=== PATIENT | male | born 1965 | race Two or more races ===

== ENCOUNTER 2023-09-18 22:32 | Inpatient (IN) | payer MEDICAID, OTHER ==
[~2023-09-18] VITALS: Ht 177.8 cm; Wt 114.0 kg
[2023-09-18 23:02] VITALS: PULSE 90; RESP 18; O2SAT 95
[2023-09-18] MEDS: VANCOMYCIN 1GM/200ML 200 ML IV ONE (23:21)
[2023-09-18] MEDS: ONDANSETRON HCL 4 MG/2 ML VIAL IV ONE (23:22)
[2023-09-18 23:35] LABS: Basophils # (auto) 0.1 10 ^3/uL (0-0.2); Basophils % (auto) 0.7 % (0.0-2.0); Eosinophils # (auto) 0.2 10 ^3/uL (0-0.8); Hematocrit 31.7 % (41.0-53.0); Hemoglobin 10.4 g/dL (13.5-17.5); Lymphocytes # (auto) 1.9 10 ^3/uL (0.4-5.4); Mean Corpuscular Hemoglobin 29.9 pg (28.0-32.0); Mean Corpuscular Hgb Conc. 32.9 g/dL (32.0-36.0); Mean Corpuscular Volume 91.1 fL (80.0-100.0); Monocytes % (auto) 5.9 % (0.0-12.0); Neutrophils # (auto) 14.1 10 ^3/uL (1.6-8.6); Neutrophils % (auto) 81.4 % (37.0-80.0); Red Blood Cells 3.48 10^6/uL (4.5-5.90); Red Cell Distribution Width 14.3 % (11.8-14.3); White Blood Cell 17.3 10^3/uL (4.4-10.8)
[2023-09-18 23:48] LABS: INR 0.97 (0.9-1.15); Partial Thromboplastin Time 27.6 SEC (24.5-34.5); Prothrombin Time 10.3 sec (9.3-11.8)
[2023-09-19 00:35] LABS: Alanine Aminotransferase 12 U/L (7-40); Albumin 3.7 g/dL (3.2-4.8); Alkaline Phosphatase 76 U/L (46-116); Anion Gap 9 (5-15); Aspartate Aminotransferase < 8 U/L (13-40); BUN/Creatinine Ratio 10.3 (10.0-20.0); Blood Urea Nitrogen 38 mg/dL (9-23); Calcium 8.9 mg/dL (8.7-10.4); Carbon Dioxide 22 mmol/L (20-30); Chloride 102 mmol/L (98-107); Glucose 265 mg/dL (74-106); Magnesium 1.9 mg/dL (1.6-2.6); Potassium 4.7 mmol/L (3.5-5.1); Sodium 133 mmol/L (136-145)
[2023-09-19 00:36] LABS: Bilirubin, Total 0.2 mg/dL (0.2-1.0); Total Protein 6.7 g/dL (5.7-8.2)
[2023-09-19] MEDS ORDERED: MORPHINE SULFATE 4 MG/ML SYR/VIAL IV ONE (01:15)
[2023-09-19] MEDS: MORPHINE SULFATE 4 MG/ML SYR/VIAL IV ONE (01:30)
[2023-09-19] MEDS: SODIUM CHLORIDE 0.9% 1,000 ML IV ONE (01:31)
[2023-09-19] MEDS: levoFLOXacin 500MG 100 ML IV ONE (01:32)
[2023-09-19] MEDS: metroNIDAZOLE 500MG/100ML 100 ML IV ONE (01:32)
[2023-09-19] MEDS ORDERED: NITROGLYCERIN 0.4 MG SL TAB SL PRN (03:00)
[2023-09-19] MEDS ORDERED: DEXTROSE (50%) 50ML SYRG IV PRN (03:00)
[2023-09-19] MEDS ORDERED: MORPHINE SULFATE INJ 2 MG/ml SYRG IV PRN ×3 (03:00→13:00)
[2023-09-19] MEDS ORDERED: ONDANSETRON HCL 4 MG/2 ML VIAL IV PRN (03:00)
[2023-09-19] MEDS ORDERED: VANCOMYCIN PER PHARMACY 0 MG IV SCH (03:00)
[2023-09-19] MEDS: SODIUM CHLORIDE 0.9% 1,000 ML IV SCH (03:21)
[2023-09-19 03:54] LABS: Urine Bacteria None Seen /hpf (None Seen)
[2023-09-19 04:38] LABS: Urine Blood Negative /uL (Negative); Urine Clarity Clear (Clear); Urine Color Light-Yellow (Yellow); Urine Protein, UAD 2+ (Negative); Urine Specific Gravity 1.011 (1.001-1.035); Urine Urobilinogen Normal (Negative); Urine WBC 5 /hpf (0 - 3)
[2023-09-19] MEDS: CLINDAMYCIN 600MG IV 50 ML IV SCH (05:40)
[2023-09-19] MEDS: InsuLIN REG 1unit/0.01ml Soln (100units/ml) SC SCH (06:00)
[2023-09-19] MEDS: ACCU-CHEK COMFORT CURVE STRIP VI SCH (06:10)
[2023-09-19 07:31] LABS: Amphetamine Screen, Urine Neg (NEGATIVE)
[2023-09-19 07:33] LABS: Barbiturate Scree,Urine Neg (NEGATIVE)
[2023-09-19 07:34] LABS: Benzodiazephine Screen, Urine Neg (NEGATIVE); Cannabinoid Screen, Urine Neg (NEGATIVE); Cocaine Screen, Urine Neg (NEGATIVE); Opiate Scree,Urine Neg (NEGATIVE); Phencyclidine Screen, Urine Neg (NEGATIVE)
[2023-09-19 07:40] VITALS: PULSE 79; RESP 18; O2SAT 95
[2023-09-19] MEDS: MORPHINE SULFATE INJ 2 MG/ml SYRG IV PRN (09:19)
[2023-09-19 09:34] LABS: Creatinine, Urine 52.03 mg/dL (30.0-125.0)
[2023-09-19] MEDS: PIPERACILLIN-TAZOB 3.375GM 100 ML IV SCH (10:00)
[2023-09-19 10:38] LABS: Chloride 107 mmol/L (98-107); Potassium 4.3 mmol/L (3.5-5.1); Sodium 138 mmol/L (136-145)
[2023-09-19 10:39] LABS: Anion Gap 8 (5-15); Calcium 8.7 mg/dL (8.7-10.4); Carbon Dioxide 23 mmol/L (20-30)
[2023-09-19 10:44] LABS: BUN/Creatinine Ratio 12.3 (10.0-20.0); Blood Urea Nitrogen 41 mg/dL (9-23); Glucose 105 mg/dL (74-106)
[2023-09-19] MEDS: VANCOMYCIN 1GM/200ML 200 ML IV ONE (10:54)
[2023-09-19] MEDS: METOCLOPRAMIDE HCL 5MG/ml INJ 2ml VIAL IV ONE (13:00)
[2023-09-19] MEDS ORDERED: fentaNYL CITRATE 100 MCG/2 ML VL IV PRN (13:00)
[2023-09-19] MEDS ORDERED: HYDROmorphone HCL 2 MG/ML VL/or syr IV PRN ×2 (13:00)
[2023-09-19] MEDS ORDERED: MIDAZOLAM HCL 2MG/2ML 2ml VIAL (1mg/ml) ONE (13:05)
[2023-09-19] MEDS ORDERED: ONDANSETRON HCL 4 MG/2 ML VIAL ONE (13:05)
[2023-09-19] MEDS ORDERED: MEPERIDINE HCL (25 MG/ML) 1ML VIAL ONE (13:05)
[2023-09-19] MEDS ORDERED: LIDOCAINE 1% INJ PF 5ML AMP ONE (13:05)
[2023-09-19] MEDS ORDERED: KETAMINE 50mg/ML 10ml Vial 10 ML ONE (13:05)
[2023-09-19] MEDS ORDERED: fentaNYL CITRATE 100 MCG/2 ML VL ONE (13:05)
[2023-09-19] MEDS ORDERED: PROPOFOL 10 MG/ML 20 ML IV ONE (13:05)
[2023-09-19] MEDS: ACCU-CHEK COMFORT CURVE STRIP VI ONE (13:09)
[2023-09-19] MEDS: BUPIVACAINE HCL 0.25% P/F 10 ML VIAL ONE (13:11)
[2023-09-19] MEDS: BUPIVACAINE 0.5% P/F INJ 10 ML VIAL ONE (13:31)
[2023-09-19] MEDS: BUPIVACAINE W/ EPINEPH 0.5% INJ 50ML MDV IJ ONE (14:02)
[2023-09-19 14:16] VITALS: PULSE 69; RESP 14; O2SAT 97
[2023-09-19] MEDS: HYDROmorphone HCL 2 MG/ML VL/or syr IV ONE ×2 (15:20→16:00)
[2023-09-19 16:36] VITALS: BP 143/84; PULSE 79; RESP 18; TEMP 97.5; O2SAT 95
[2023-09-19 16:47] VITALS: BP 143/84; PULSE 79; RESP 18; TEMP 97.5; O2SAT 95
[2023-09-19 16:51] LABS: Chloride 110 mmol/L (98-107); Potassium 4.8 mmol/L (3.5-5.1); Sodium 140 mmol/L (136-145)
[2023-09-19 16:52] LABS: Anion Gap 12 (5-15); Calcium 9.1 mg/dL (8.7-10.4); Carbon Dioxide 18 mmol/L (20-30)
[2023-09-19 16:54] LABS: Basophils # (auto) 0.1 10 ^3/uL (0-0.2); Basophils % (auto) 0.5 % (0.0-2.0); Eosinophils # (auto) 0.3 10 ^3/uL (0-0.8); Eosinophils % (auto) 2.4 % (0.0-7.0); Hematocrit 32.8 % (41.0-53.0); Hemoglobin 10.6 g/dL (13.5-17.5); Lymphocytes # (auto) 1.8 10 ^3/uL (0.4-5.4); Lymphocytes % (auto) 12.7 % (10.0-50.0); Mean Corpuscular Hemoglobin 30.1 pg (28.0-32.0); Mean Corpuscular Hgb Conc. 32.2 g/dL (32.0-36.0); Mean Corpuscular Volume 93.4 fL (80.0-100.0); Monocytes % (auto) 6.9 % (0.0-12.0); Neutrophils # (auto) 11.1 10 ^3/uL (1.6-8.6); Neutrophils % (auto) 77.5 % (37.0-80.0); Nucleated Red Blood Cells % 0.1 %; Red Blood Cells 3.51 10^6/uL (4.5-5.90); Red Cell Distribution Width 14.6 % (11.8-14.3); White Blood Cell 14.3 10^3/uL (4.4-10.8)
[2023-09-19 16:57] LABS: Blood Urea Nitrogen 38 mg/dL (9-23); Glucose 77 mg/dL (74-106)
[2023-09-19] MEDS ORDERED: GABA-1250 PO (18:00)
[2023-09-19] MEDS ORDERED: NIFE1TAB31 PO (18:00)
[2023-09-19] MEDS ORDERED: MELO15TA29 PO (18:00)
[2023-09-19] MEDS ORDERED: LORA10TA6 PO (18:00)
[2023-09-19] MEDS ORDERED: CYCL-838 PO (18:07)
[2023-09-19] MEDS ORDERED: CHOL20TA PO (18:07)
[2023-09-19] MEDS ORDERED: METH100035 PO (18:07)
[2023-09-19] MEDS ORDERED: INSU100I26 SC (18:07)
[2023-09-19] MEDS ORDERED: LISI40TA16 PO (18:07)
[2023-09-19] MEDS ORDERED: INSLANTI SC (18:07)
[2023-09-19 20:00] VITALS: PULSE 71; PULSE 83; RESP 15; O2SAT 97
[2023-09-19 21:00] VITALS: BP 112/44; PULSE 77; RESP 18; TEMP 98; O2SAT 93
[2023-09-19] MEDS: MEROPENEM 500MG IVPB 50 ML IV SCH (21:10)
[2023-09-20] VITALS (8 sets, daily range): BP systolic 121–154; BP diastolic 51–85; PULSE 70–106; RESP 18–20; TEMP 97.7–98.8; O2SAT 92–99
[2023-09-20 06:20] LABS: Alanine Aminotransferase 11 U/L (7-40); Alkaline Phosphatase 68 U/L (46-116); Anion Gap 10 (5-15); BUN/Creatinine Ratio 11.3 (10.0-20.0); Basophils # (auto) 0.1 10 ^3/uL (0-0.2); Basophils % (auto) 0.6 % (0.0-2.0); Blood Urea Nitrogen 36 mg/dL (9-23); Calcium 8.6 mg/dL (8.7-10.4); Carbon Dioxide 21 mmol/L (20-30); Chloride 108 mmol/L (98-107); Eosinophils # (auto) 0.4 10 ^3/uL (0-0.8); Eosinophils % (auto) 3.2 % (0.0-7.0); Glucose 145 mg/dL (74-106); Hemoglobin 10.1 g/dL (13.5-17.5); Lymphocytes # (auto) 1.4 10 ^3/uL (0.4-5.4); Lymphocytes % (auto) 13.1 % (10.0-50.0); Mean Corpuscular Hemoglobin 30.8 pg (28.0-32.0); Mean Corpuscular Hgb Conc. 33.6 g/dL (32.0-36.0); Mean Corpuscular Volume 91.7 fL (80.0-100.0); Monocytes # (auto) 0.8 10 ^3/uL (0-1.3); Monocytes % (auto) 7.3 % (0.0-12.0); Neutrophils # (auto) 8.2 10 ^3/uL (1.6-8.6); Neutrophils % (auto) 75.8 % (37.0-80.0); Potassium 4.8 mmol/L (3.5-5.1); Red Blood Cells 3.27 10^6/uL (4.5-5.90); Red Cell Distribution Width 13.9 % (11.8-14.3); Sodium 139 mmol/L (136-145); White Blood Cell 10.8 10^3/uL (4.4-10.8)
[2023-09-20 06:21] LABS: Albumin 3.3 g/dL (3.2-4.8); Aspartate Aminotransferase < 8 U/L (13-40)
[2023-09-20 06:22] LABS: Bilirubin, Total 0.2 mg/dL (0.2-1.0); Total Protein 6.2 g/dL (5.7-8.2)
[2023-09-20] MEDS: MEROPENEM 1GM IVPB 50 ML IV SCH (09:46)
[2023-09-20] MEDS: VANCOMYCIN 1GM/200ML 200 ML IV ONE (12:45)
[2023-09-20] MEDS: GABAPENTIN 300 MG CAP PO SCH (13:16)
[2023-09-21] VITALS (8 sets, daily range): BP systolic 128–147; BP diastolic 58–79; PULSE 59–76; RESP 17–20; TEMP 97.6–98.6; O2SAT 95–97
[2023-09-21] MEDS: HYDROcodone-ACET 5/325MG TAB PO PRN (08:07)
[2023-09-21 08:33] LABS: Basophils # (auto) 0.1 10 ^3/uL (0-0.2); Basophils % (auto) 0.6 % (0.0-2.0); Eosinophils # (auto) 0.3 10 ^3/uL (0-0.8); Eosinophils % (auto) 3.1 % (0.0-7.0); Hematocrit 30.8 % (41.0-53.0); Hemoglobin 10.3 g/dL (13.5-17.5); Lymphocytes # (auto) 1.4 10 ^3/uL (0.4-5.4); Lymphocytes % (auto) 13.5 % (10.0-50.0); Mean Corpuscular Hemoglobin 30.3 pg (28.0-32.0); Mean Corpuscular Hgb Conc. 33.3 g/dL (32.0-36.0); Mean Corpuscular Volume 90.7 fL (80.0-100.0); Monocytes # (auto) 0.7 10 ^3/uL (0-1.3); Monocytes % (auto) 6.6 % (0.0-12.0); Neutrophils % (auto) 76.2 % (37.0-80.0); Nucleated Red Blood Cells % 0.1 %; Red Blood Cells 3.39 10^6/uL (4.5-5.90); Red Cell Distribution Width 13.8 % (11.8-14.3); White Blood Cell 10.5 10^3/uL (4.4-10.8)
[2023-09-21 08:43] LABS: Chloride 107 mmol/L (98-107); Potassium 5.1 mmol/L (3.5-5.1); Sodium 139 mmol/L (136-145)
[2023-09-21 08:44] LABS: Anion Gap 8 (5-15); Calcium 9.4 mg/dL (8.7-10.4); Carbon Dioxide 24 mmol/L (20-30)
[2023-09-21 08:49] LABS: BUN/Creatinine Ratio 12.7 (10.0-20.0); Blood Urea Nitrogen 39 mg/dL (9-23); Glucose 235 mg/dL (74-106)
[2023-09-21] MEDS: NIFEdipine ER 30 MG TAB PO SCH ×2 (10:00→21:06)
[2023-09-21] MEDS: LOSARTAN POTASSIUM 50 MG TAB PO SCH (10:00)
[2023-09-21] MEDS: VANCOMYCIN 750mg/150ml 150 ML IV ONE (14:05)
[2023-09-21] MEDS: ERGOCALCIFEROL 50,000 UNIT(1.25MG) CAP PO SCH (17:35)
[2023-09-21] MEDS: levoFLOXacin 250 MG TAB PO SCH (21:10)
[2023-09-21] MEDS ORDERED: AMOXICILLIN/CLAVUL 875 MG TAB PO SCH (22:00)
[2023-09-22] VITALS (7 sets, daily range): BP systolic 109–136; BP diastolic 57–74; PULSE 63–81; RESP 17–20; TEMP 97.5–98.8; O2SAT 92–98
[2023-09-22 06:06] LABS: Basophils # (auto) 0.1 10 ^3/uL (0-0.2); Basophils % (auto) 0.8 % (0.0-2.0); Eosinophils # (auto) 0.4 10 ^3/uL (0-0.8); Hematocrit 31.4 % (41.0-53.0); Hemoglobin 10.4 g/dL (13.5-17.5); Lymphocytes % (auto) 20.7 % (10.0-50.0); Mean Corpuscular Hemoglobin 30.3 pg (28.0-32.0); Mean Corpuscular Hgb Conc. 33.3 g/dL (32.0-36.0); Monocytes # (auto) 0.7 10 ^3/uL (0-1.3); Monocytes % (auto) 7.2 % (0.0-12.0); Neutrophils # (auto) 6.7 10 ^3/uL (1.6-8.6); Neutrophils % (auto) 67.3 % (37.0-80.0); Red Blood Cells 3.45 10^6/uL (4.5-5.90); Red Cell Distribution Width 13.7 % (11.8-14.3); White Blood Cell 9.9 10^3/uL (4.4-10.8)
[2023-09-22 06:10] LABS: Anion Gap 9 (5-15); Carbon Dioxide 23 mmol/L (20-30); Chloride 106 mmol/L (98-107); Potassium 4.7 mmol/L (3.5-5.1); Sodium 138 mmol/L (136-145)
[2023-09-22 06:11] LABS: Calcium 9.4 mg/dL (8.7-10.4)
[2023-09-22 06:15] LABS: Glucose 235 mg/dL (74-106)
[2023-09-22 06:16] LABS: BUN/Creatinine Ratio 12.4 (10.0-20.0); Blood Urea Nitrogen 37 mg/dL (9-23)
[2023-09-22] MEDS: INSULIN LANTUS (GLARGINE) 1 /0.01ml (100units/ml) SC SCH (11:23)
[2023-09-22] MEDS: AMOXICILLIN/CLAVUL 875 MG TAB PO SCH (21:40)
[2023-09-23] VITALS (7 sets, daily range): BP systolic 106–139; BP diastolic 52–69; PULSE 69–80; RESP 16–20; TEMP 36.5; O2SAT 92–96
[2023-09-23 05:43] LABS: Anion Gap 8 (5-15); Carbon Dioxide 24 mmol/L (20-30); Chloride 107 mmol/L (98-107); Potassium 4.9 mmol/L (3.5-5.1); Sodium 139 mmol/L (136-145)
[2023-09-23 05:44] LABS: Calcium 9.1 mg/dL (8.7-10.4)
[2023-09-23 05:47] LABS: Basophils # (auto) 0.1 10 ^3/uL (0-0.2); Basophils % (auto) 0.8 % (0.0-2.0); Eosinophils # (auto) 0.4 10 ^3/uL (0-0.8); Eosinophils % (auto) 4.6 % (0.0-7.0); Hematocrit 30.2 % (41.0-53.0); Hemoglobin 10.2 g/dL (13.5-17.5); Lymphocytes # (auto) 2.5 10 ^3/uL (0.4-5.4); Lymphocytes % (auto) 25.4 % (10.0-50.0); Mean Corpuscular Hemoglobin 30.4 pg (28.0-32.0); Mean Corpuscular Hgb Conc. 33.8 g/dL (32.0-36.0); Monocytes # (auto) 0.6 10 ^3/uL (0-1.3); Monocytes % (auto) 6.2 % (0.0-12.0); Neutrophils # (auto) 6.1 10 ^3/uL (1.6-8.6); Red Blood Cells 3.35 10^6/uL (4.5-5.90); Red Cell Distribution Width 13.7 % (11.8-14.3); White Blood Cell 9.7 10^3/uL (4.4-10.8)
[2023-09-23 05:49] LABS: BUN/Creatinine Ratio 14.2 (10.0-20.0); Glucose 182 mg/dL (74-106)
[2023-09-23 05:53] LABS: Blood Urea Nitrogen 47 mg/dL (9-23)
[2023-09-23] MEDS ORDERED: HYDR-4902 PO (11:03)
[2023-09-23] MEDS ORDERED: AUG875T PO (14:04)
== END 2023-09-23 18:25 | disposition home health service (06) | DRG 349 ==
LOC: ER 22:32 → EDBD 22:32 → TELE 09-19 03:02 → TELE-WESTW 09-19 16:41 → WEST WING 09-21 20:57
PROVIDERS: ADMIT Internal Medicine; ATTEND Internal Medicine
PROC: 0Y9G0ZZ Drainage of Left Knee Region, Open Approach (ICD-10-PCS; principal; 2023-09-19 13:40)
DX: T87.44 Infection of amputation stump, left lower extremity (principal); N17.0 Acute kidney failure with tubular necrosis; L02.416 Cutaneous abscess of left lower limb; E87.1 Hypo-osmolality and hyponatremia; L03.116 Cellulitis of left lower limb; E11.22 Type 2 diabetes mellitus with diabetic chronic kidney disease; N18.4 Chronic kidney disease, stage 4 (severe); F17.200 Nicotine dependence, unspecified, uncomplicated; I12.9 Hypertensive chronic kidney disease with stage 1 through stage 4 chronic kidney disease, or unspecified chronic kidney disease; Y83.8 Other surgical procedures as the cause of abnormal reaction of the patient, or of later complication, without mention of misadventure at the time of the procedure; E66.01 Morbid (severe) obesity due to excess calories; E55.9 Vitamin D deficiency, unspecified; E87.5 Hyperkalemia; Z89.512 Acquired absence of left leg below knee; Z79.4 Long term (current) use of insulin; Z88.0 Allergy status to penicillin; Z68.36 Body mass index [BMI] 36.0-36.9, adult
CPT/HCPCS: 36415; 71045; 73590; 80048; 80053; 80202; 80307; 81001; 82306; 82570; 82962; 83036; 83605; 83735; 83880; 84300; 84484; 85025; 85610; 85730; 86850; 86900; 86901; 87040; 87070; 87075; 87077; 87081; 87186; 87205; G0378; J1815; J1956; J2185; J2250; J2405; J2704; J3490

== ENCOUNTER 2023-10-25 05:53 | Inpatient (IN) | payer MEDICAID ==
[~2023-10-25] VITALS: Ht 193 cm; Wt 136.4 kg
[~2023-10-25 05:53] MED LIST: AUG875T PO; CHOL20TA PO; CYCL-838 PO; GABA-1250 PO; HYDR-4902 PO; INSLANTI SC; INSU100I26 SC; LISI40TA16 PO; LORA10TA6 PO; MELO15TA29 PO; METH100035 PO; NIFE1TAB31 PO
[2023-10-25] MEDS: VANCOMYCIN 1GM/200ML 200 ML IV ONE (08:29)
[2023-10-25] MEDS: HYDROcodone-ACET 10/325MG TAB PO ONE ×2 (08:40→11:49)
[2023-10-25 08:50] LABS: Basophils # (auto) 0.1 10 ^3/uL (0-0.2); Basophils % (auto) 0.9 % (0.0-2.0); Eosinophils # (auto) 0.6 10 ^3/uL (0-0.8); Eosinophils % (auto) 5.9 % (0.0-7.0); Hematocrit 34.6 % (41.0-53.0); Hemoglobin 11.6 g/dL (13.5-17.5); Lymphocytes # (auto) 2.1 10 ^3/uL (0.4-5.4); Lymphocytes % (auto) 19.6 % (10.0-50.0); Mean Corpuscular Hemoglobin 30.8 pg (28.0-32.0); Mean Corpuscular Hgb Conc. 33.5 g/dL (32.0-36.0); Mean Corpuscular Volume 91.9 fL (80.0-100.0); Monocytes # (auto) 0.6 10 ^3/uL (0-1.3); Monocytes % (auto) 5.2 % (0.0-12.0); Neutrophils # (auto) 7.5 10 ^3/uL (1.6-8.6); Neutrophils % (auto) 68.4 % (37.0-80.0); Nucleated Red Blood Cells % 0.1 %; Platelet Count (auto) 284 10^3/uL (140-450); Red Blood Cells 3.77 10^6/uL (4.5-5.90); Red Cell Distribution Width 15.6 % (11.8-14.3); White Blood Cell 10.9 10^3/uL (4.4-10.8)
[2023-10-25 09:13] LABS: Alanine Aminotransferase 16 U/L (7-40); Albumin 4.2 g/dL (3.2-4.8); Alkaline Phosphatase 88 U/L (46-116); Anion Gap 7 (5-15); Aspartate Aminotransferase 12 U/L (13-40); BUN/Creatinine Ratio 10.1 (10.0-20.0); Blood Urea Nitrogen 39 mg/dL (9-23); Calcium 9.8 mg/dL (8.7-10.4); Carbon Dioxide 21 mmol/L (20-30); Chloride 109 mmol/L (98-107); Glucose 149 mg/dL (74-106); Potassium 4.9 mmol/L (3.5-5.1); Sodium 137 mmol/L (136-145)
[2023-10-25 09:14] LABS: Bilirubin, Total 0.2 mg/dL (0.2-1.0)
[2023-10-25] MEDS: PIPERACILLIN-TAZOB 3.375GM 100 ML IV ONE (09:39)
[2023-10-25 11:38] VITALS: PULSE 80; RESP 16; O2SAT 98
[2023-10-25] MEDS ORDERED: DOCUSATE SOD 100 MG CAP PO PRN (12:45)
[2023-10-25] MEDS ORDERED: ONDANSETRON HCL 4 MG/2 ML VIAL IV PRN (12:45)
[2023-10-25] MEDS ORDERED: NITROGLYCERIN 0.4 MG SL TAB SL PRN (12:45)
[2023-10-25] MEDS ORDERED: VANCOMYCIN PER PHARMACY 0 MG IV SCH (12:45)
[2023-10-25] MEDS: SODIUM CHLORIDE 0.9% 1,000 ML IV SCH (13:10)
[2023-10-25] MEDS: CEFEPIME 2GM/50ML NS 50 ML IV SCH (14:38)
[2023-10-25] MEDS: MORPHINE SULFATE INJ 2 MG/ml SYRG IV PRN (14:45)
[2023-10-26] MEDS ORDERED: ENOXAPARIN SOD 40 MG/0.4 ML SYRINGE SC SCH (10:00)
== END 2023-10-25 18:13 | disposition left against medical advice (07) | DRG 349 ==
LOC: ER 05:53 → OVERFLOW 12:46 → UNDOADMIN 12:46 → UNDODISIN 18:13
PROVIDERS: ADMIT Nurse Practitioner Family; ATTEND Nurse Practitioner Family
DX: T87.44 Infection of amputation stump, left lower extremity (principal); N17.9 Acute kidney failure, unspecified; L03.116 Cellulitis of left lower limb; E11.22 Type 2 diabetes mellitus with diabetic chronic kidney disease; Z53.29 Procedure and treatment not carried out because of patient's decision for other reasons; E66.9 Obesity, unspecified; I12.9 Hypertensive chronic kidney disease with stage 1 through stage 4 chronic kidney disease, or unspecified chronic kidney disease; N18.9 Chronic kidney disease, unspecified; Z68.36 Body mass index [BMI] 36.0-36.9, adult; Z79.4 Long term (current) use of insulin; Z79.899 Other long term (current) drug therapy; Y84.8 Other medical procedures as the cause of abnormal reaction of the patient, or of later complication, without mention of misadventure at the time of the procedure; Y92.89 Other specified places as the place of occurrence of the external cause
CPT/HCPCS: 36415; 73590; 80053; 85025; 93971; 96361; 96365; 96366; 96367; 96375; G0378; J0692; J2543

== ENCOUNTER 2024-01-04 16:17 | Inpatient (IN) | payer MEDICAID ==
[~2024-01-04] VITALS: Ht 190.5 cm; Wt 136.9 kg
[2024-01-04] MEDS: HYDROMORPHONE HCL 1 MG/ML INJ IV ONE (19:45)
--- NOTE | 2024-01-04 19:52 | ED.PDOC ---
History of Present Illness HPI Comments A 58 year old male presents to the ED with a chief complaint of wound check onset today. Patient states he gets wound care by home care nurse but has not been seen for the past 2 weeks. Patient believes he has an infection for the past 2 days, with drainage and surrounding area is red and tender to touch. Pr imary care is Dr. Pratt but has not seen him recently. Patient has a past medical history of DM, HTN,CKF. No other symptoms or modifying factors present at this time. Chief Complaint: Wound Check Time Seen by MD: 19:40 Reviewed Notes: Medications, Allergies Allergies: Coded Allergies: Penicillins (Verified Allergy, Unknown, 09/19/23) Home Meds Active Scripts Amoxicillin & Pot Clavulanate (AUGMENTIN TABLET) 875 Mg Tb, 875 MG PO BID for 14 Days, #28 TAB Prov:JOSÉ MIGUEL SMITH RESIDENT 09/23/23 Hydrocodone-Acetaminophen (Hydrocodone Bitartrate/AC 5-325 mg) 1 Tab Tab, 1 TAB PO Q6HPRN PRN, #30 TAB Prov:MONSE OCHOA MD 09/23/23 Reported Medications Insulin Lispro (Admelog) 100 Unit/Ml Inj, 100 UNIT SC, INJ 09/19/23 Insulin Glargine (Lantus) 100 Unit/Ml Inj, 100 UNIT SC, INJ 09/19/23 Lisinopril (Lisinopril) 40 Mg Tab, 40 MG PO DAILY for 30 Days, MG 09/19/23 Methocarbamol (Robaxin) 1,000 Mg/10 Ml Inj, 750 MG PO BIDP, INJ 09/19/23 Cholecalciferol (Vitamin D3) 20 Mcg Tab, 125 MCG PO DAILY, TAB 09/19/23 Cyclobenzaprine Hcl (CYCLOBENZAPRINE HCL) 7.5 Mg Tab, 5 MG PO TIDPRN, TAB 09/19/23 Loratadine (Loratadine) 10 Mg Tab, 10 MG PO DAILY, TAB 09/19/23 Meloxicam (Meloxicam) 15 Mg Tab, 15 MG PO DAILY, TAB 09/19/23 Nifedipine (Nifedipine Er) 30 Mg Tab, 30 MG PO DAILY, TAB 09/19/23 Gabapentin (Gabapentin) 300 Mg Cap, 300 MG PO TIDP for 30 Days, MG 09/19/23 Information Source: Patient Mode of Arrival: Ambulatory Severity: Moderate Timing: Days Duration: Since onset Prehospital treatment: None Past Medical History PAST MEDICAL HISTORY: CKF, DM, HTN Surgical History: BKA Surgical History (Other): RT femur surgery RT toe amputation Family History Family History: Unknown Social History Smoker: Non-Smoker Alcohol: Occasionally Drugs: Denies Drug Use Lives In: Home Constitutional: denies: chills, diaphoresis, fatigue, fever, malaise, sweats, weakness, others EENTM: denies: blurred vision, double vision, ear bleeding, ear discharge, ear drainage, ear pain, ear ringing, eye pain, eye redness, hearing loss, mouth pain, mouth swelling, nasal discharge, nose bleeding, nose congestion, nose pain, photophobia, tearing, throat pain, throat swelling, voice changes, others Respiratory: denies: cough, hemoptysis, orthopnea, SOB at rest, shortness of breath, SOB with excertion, stridor, wheezing, others Cardiovascular: denies: chest pain, dizzy spells, diaphoresis, Dyspnea on exertion, edema, irregular heart beat, left arm pain, lightheadedness, palpitations, PND, syncope, others Gastrointestinal: denies: abdomen distended, abdominal pain, blood streaked bowels, constipated, diarrhea, dysphagia, difficulty swallowing, hematemesis, melena, nausea, poor appetite, poor fluid intake, rectal bleeding, rectal pain, vomiting, others Genitourinary: denies: burning, dysuria, flank pain, frequency, hematuria, incontinence, penile discharge, penile sore, pain, testicle pain, testicle swelling, urgency, others Neurological: denies: dizziness, fainting, headache, left sided numbness, left sided weakness, numbness, paresthesia, pre-existing deficit, right sided numbness, right sided weakness, seizure, speech problems, tingling, tremors, weakness, others Musculoskeletal: reports: others (LT stump with open wound); denies: back pain, gout, joint pain, joint swelling, muscle pain, muscle stiffness, neck pain Integumetry: denies: bruises, change in color, change in hair/nails, dryness, laceration, lesions, lumps, rash, wounds, others Allergic/Immunocompromised: denies: Difficulty Healing, Frequent Infections, Hives, Itching, others Hematologic/Lymphatic: denies: anemia, blood clots, easy bleeding, easy bruising, swollen glands, others Endocrine: denies: excessive hunger, excessive sweating, excessive thirst, excessive urination, flushing, intolerance to cold, intolerance to heat, unexplained weight gain, unexplained weight loss, others Psychiatric: denies: anxiety, bipolar disorder, depression, hopeless, panic disorder, schizophrenia, sleepless, suicidal, others All Other Systems: Reviewed and Negative Physical Exam General Appearance: Mild Distress, Normal HEENT: Normal ENT Inspection, Pharynx Normal, TMs Normal Neck: Full Range of Motion, Non-Tender, Normal, Normal Inspection Respiratory: Chest Non-Tender, Lungs Clear, No Accessory Muscle Use, No Respiratory Distress, Normal Breath Sounds Cardiovascular: No Edema, No JVD, No Murmur, No Gallop, Normal Peripheral Pulses, Regular Rate/Rhythm Breast Exam: Deferred Gastrointestinal: No Organomegaly, Non Tender, No Pulsatile Mass, Normal Bowel Sounds, Soft Genitalia: Deferred Pelvic: Deferred Rectal: Deferred Extremities: No calf tenderness, Normal capillary refill, Normal inspection, Normal range of motion, Non-tender, No pedal edema, Other (Left [id number] amputation stump with the open wound and purulent discharge about a half-dollar size) Musculoskeletal : Apperance: Normal Neurologic: Alert, security guard supervisor II-XII nml as Tested, No Motor Deficits, Normal Affect, Normal Mood, No Sensory Deficits Cerebellar Function: Normal Reflexes: Normal Skin: Dry, Normal Color, Warm Lymphatic: No Adenopathy Was a procedure done? Was a procedure done?: No Differential Dx Considerations may include: Sepsis cellulitis abscess formation wound infection X-Ray, Labs, Meds, VS Vital Signs Date Time Temp Pulse Resp B/P (MAP) Pulse Ox O2 Delivery O2 Flow Rate FiO2 01/04/24 17:43 97.8 77 16 138/73 (94) 97 Lab Test 01/04/24 20:57 01/04/24 20:00 Range/Units Troponin I High Sensitivity 5 5 </=54 ng/L White Blood Count 12.6 H 4.4-10.8 10^3/uL Red Blood Count 4.31 L 4.5-5.90 10^6/uL Hemoglobin 13.2 L 13.5-17.5 g/dL Hematocrit 40.1 L 41.0-53.0 % Mean Corpuscular Volume 93.0 80.0-100.0 fL Mean Corpuscular Hemoglobin 30.5 28.0-32.0 pg Mean Corpuscular Hemoglobin Concent 32.9 32.0-36.0 g/dL Red Cell Distribution Width 15.3 H 11.8-14.3 % Platelet Count 281 140-450 10^3/uL Mean Platelet Volume 9.1 6.9-10.8 fL Neutrophils (%) (Auto) 69.5 37.0-80.0 % Lymphocytes (%) (Auto) 22.1 10.0-50.0 % Monocytes (%) (Auto) 4.8 0.0-12.0 % Eosinophils (%) (Auto) 2.7 0.0-7.0 % Basophils (%) (Auto) 0.9 0.0-2.0 % Neutrophils # (Auto) 8.8 H 1.6-8.6 10 ^3/uL Lymphocytes # (Auto) 2.8 0.4-5.4 10 ^3/uL Monocytes # (Auto) 0.6 0-1.3 10 ^3/uL Eosinophils # (Auto) 0.3 0-0.8 10 ^3/uL Basophils # (Auto) 0.1 0-0.2 10 ^3/uL Nucleated Red Blood Cells 0.0 % Prothrombin Time 10.5 9.3-11.8 sec Prothrombin Time INR 0.99 0.9-1.15 Activated Partial Thromboplast Time 27.1 24.5-34.5 SEC Sodium Level 139 136-145 mmol/L Potassium Level 5.8 *H 3.5-5.1 mmol/L Chloride Level 109 H 98-107 mmol/L Carbon Dioxide Level 22 20-31 mmol/L Anion Gap 8 5-15 Blood Urea Nitrogen 54 H 9-23 mg/dL Creatinine 3.11 H 0.700-1.30 mg/dL Glomerular Filtration Rate Calc 23 >90 mL/min BUN/Creatinine Ratio 17.4 10.0-20.0 Serum Glucose 182 H 74-106 mg/dL Calcium Level 10.4 8.7-10.4 mg/dL Total Bilirubin 0.2 0.2-1.0 mg/dL Aspartate Amino Transferase (AST) 9 L 13-40 U/L Alanine Aminotransferase (ALT) 16 7-40 U/L Alkaline Phosphatase 101 46-116 U/L B-Type Natriuretic Peptide 35.18 0-100 pg/mL Total Protein 8.5 H 5.7-8.2 g/dL Albumin 4.7 3.2-4.8 g/dL [facility] [address] [facility] [id number] Ph: [phone] DIAGNOSTIC IMAGING Diagnostic Imaging Report : [id number] Signed PATIENT: HEATHER WOLF WACCT: [id number] UNIT: [id number] : 1965 LOC: ER ROOM / BED: / AGE / SEX: 58 / M ADM STATUS: REG ER SERVICE 44 ORDERING PHYSICIAN: HARDEEP PEÑALOZA MD PROCEDURE(s): CXRP - CHEST PORTABLE REASON: wound ORDER NUMBER(s): [id number], ACCESSION NUMBER(s): [id number] EXAM: XY CHEST PORTABLE CLINICAL HISTORY: wound TECHNIQUE: Single AP view of the chest WID: COMPARISON: XY CHEST PORTABLE on DOS: 09/18/23 FINDINGS: Lines and tubes: None Chest: The heart size and pulmonary vasculature is within normal limits. No pleural effusion, pneumothorax, or consolidation. The osseous structures are grossly intact. IMPRESSION: No acute cardiopulmonary abnormality. ATED BY: VICTORIA MEDINA MD DICTATED DATE/TIME: 01/04/242113 SIGNED BY: VICTORIA MEDINA MD SIGNED DATE/TIME: 01/04/242113 CC: First troponin is five. Second troponin is five. EKG is pending White blood cell count is 12.6. BNP is 35. BUN is 54 and creatinine 3.1. Potassium is 5.8 glucose is 186. Lactic acid is pending. The patient was placed on Zosyn and vancomycin for. Montilla infection. He will be admitted to the hospitalist for further evaluation and care. Time of 1ST Reevaluation: 20:10 Reevaluation 1ST: Unchanged Patient Education/Counseling: Diagnosis, Treatment, Prognosis Family Education/Counseling: No Family Present Departure 1 Departure Time of Disposition: 21:58 Impression: Primary Impression: Wound infection Additional Impressions: Chronic renal failure Qualified Codes: N18.9 - Chronic kidney disease, unspecified Hyperkalemia Disposition: ADMITTED INPATIENT Admit to: Med Surg Condition: Guarded Critical Care Note Critical Care Time?: No Stability Stability form required: No I personally scribed for HARDEEP PEÑALOZA MD ([email or web address]) on 01/04/24 at 19:52. Electronically submitted by Alee Zhu ([email or web address]). I personally scribed for HARDEEP PEÑALOZA MD ([email or web address]) on 01/04/24 at 21:42. Electronically submitted by Alee Zhu ([email or web address]). HARDEEP PEÑALOZA MD Jan 04, 2024 19:52
[2024-01-04 20:24] LABS: Basophils # (auto) 0.1 10 ^3/uL (0-0.2); Basophils % (auto) 0.9 % (0.0-2.0); Eosinophils # (auto) 0.3 10 ^3/uL (0-0.8); Eosinophils % (auto) 2.7 % (0.0-7.0); Hematocrit 40.1 % (41.0-53.0); Hemoglobin 13.2 g/dL (13.5-17.5); Lymphocytes # (auto) 2.8 10 ^3/uL (0.4-5.4); Lymphocytes % (auto) 22.1 % (10.0-50.0); Mean Corpuscular Hemoglobin 30.5 pg (28.0-32.0); Mean Corpuscular Hgb Conc. 32.9 g/dL (32.0-36.0); Monocytes # (auto) 0.6 10 ^3/uL (0-1.3); Monocytes % (auto) 4.8 % (0.0-12.0); Neutrophils # (auto) 8.8 10 ^3/uL (1.6-8.6); Neutrophils % (auto) 69.5 % (37.0-80.0); Platelet Count (auto) 281 10^3/uL (140-450); Red Blood Cells 4.31 10^6/uL (4.5-5.90); Red Cell Distribution Width 15.3 % (11.8-14.3); White Blood Cell 12.6 10^3/uL (4.4-10.8)
[2024-01-04 20:35] LABS: Alanine Aminotransferase 16 U/L (7-40); Albumin 4.7 g/dL (3.2-4.8); Alkaline Phosphatase 101 U/L (46-116); Anion Gap 8 (5-15); Aspartate Aminotransferase 9 U/L (13-40); BUN/Creatinine Ratio 17.4 (10.0-20.0); Blood Urea Nitrogen 54 mg/dL (9-23); Calcium 10.4 mg/dL (8.7-10.4); Carbon Dioxide 22 mmol/L (20-31); Chloride 109 mmol/L (98-107); Glucose 182 mg/dL (74-106); Sodium 139 mmol/L (136-145)
[2024-01-04 20:36] LABS: Bilirubin, Total 0.2 mg/dL (0.2-1.0); Total Protein 8.5 g/dL (5.7-8.2)
[2024-01-04 20:45] LABS: INR 0.99 (0.9-1.15); Partial Thromboplastin Time 27.1 SEC (24.5-34.5); Prothrombin Time 10.5 sec (9.3-11.8)
--- NOTE | 2024-01-04 21:17 | DVH ---
EXAM: XY CHEST PORTABLE CLINICAL HISTORY: wound TECHNIQUE: Single AP view of the chest WID: COMPARISON: XY CHEST PORTABLE on DOS: 09/18/23 FINDINGS: Lines and tubes: None Chest: The heart size and pulmonary vasculature is within normal limits. No pleural effusion, pneumothorax, or consolidation. The osseous structures are grossly intact. IMPRESSION: No acute cardiopulmonary abnormality.
[2024-01-04 21:47] LABS: Potassium 5.8 mmol/L (3.5-5.1)
[2024-01-04] MEDS: HYDROcodone-ACET 10/325MG TAB PO ONE (23:52)
[2024-01-05] MEDS: PIPERACILLIN-TAZOB 3.375GM 100 ML IV ONE (00:14)
[2024-01-05] MEDS: SODIUM CHLORIDE 0.9% 1,000 ML IV ONE (00:14)
[2024-01-05] MEDS: ONDANSETRON HCL 4 MG/2 ML VIAL IV ONE (00:15)
[2024-01-05 00:27] VITALS: PULSE 77; RESP 16; O2SAT 98
[2024-01-05] MEDS ORDERED: ACETAMINOPHEN 325 MG TAB PO PRN (01:15)
[2024-01-05] MEDS ORDERED: DEXTROSE (50%) 50ML SYRG IV PRN (01:15)
[2024-01-05] MEDS ORDERED: TEMAZEPAM 15 MG CAP PO PRN (01:15)
[2024-01-05] MEDS ORDERED: hydrALAZINE HCL 20 MG/ML VL IV PRN (01:15)
[2024-01-05] MEDS: SODIUM ZIRCONIUM CYCL 10 GM PAK PO ONE (01:32)
[2024-01-05 01:43] LABS: Urine Bacteria None Seen /hpf (None Seen)
[2024-01-05] MEDS: SODIUM BICARB 8.4% 50Meq/50ml SYR Vial IV ONE (01:45)
[2024-01-05] MEDS: CALCIUM GLUC 1,000mg/50ml-NS 50 ML IV ONE (01:56)
--- NOTE | 2024-01-05 02:01 | DVH ---
INDICATION: Rule out osteomyellitus COMPARISON: None TECHNIQUE: CT of the left femur was performed without contrast. Volume transverse images were obtaine d and reconstructed in multiple planes using bone and soft tissue algorithms. All CT scans at this medical facility are performed using dose modulation techniques as appropriate t o a performed exam including the following: Automated exposure control was utilized; adjustment of th e MA and/or KV according to patient size; and use of iterative reconstruction technique. FINDINGS: Normal mineralization and alignment. Joint spaces are preserved. There is no acute fracture. No focal osteopenia or cortical destruction to suggest osteomyelitis. There is mild osteoarthritis of the lef t hip with mild joint space narrowing. There is tricompartment osteoarthritis of the left knee with m ild medial compartment joint space narrowing and tricompartment osteophyte formation. Prostate calcifications are seen. Urinary bladder is partially imaged and moderately distended. No ac roseanna abnormality in the visualized pelvis. The muscle bundles about the left femur are intact. Note is made of subcutaneous varicose veins. There is a trace left knee joint effusion. There is calcified a therosclerosis IMPRESSION: 1. No acute osseous abnormality. 2. Mild osteoarthritis of the left hip. 3. Mild tricompartment osteoarthritis of the left knee with mild medial compartment joint space jobyo .
[2024-01-05 02:13] LABS: Urine Amorphous Crystal FEW /hpf (None Seen); Urine Blood Negative /uL (Negative); Urine Clarity Clear (Clear); Urine Color Light-Yellow (Yellow); Urine Protein, UAD 2+ (Negative); Urine Specific Gravity 1.014 (1.001-1.035); Urine Urobilinogen Normal (Negative); Urine WBC 1 /hpf (0 - 3); Urine pH 5.5 (5.0-9.0)
[2024-01-05] MEDS: DEXTROSE (50%) 50ML SYRG IV ONE ×2 (02:28→08:15)
[2024-01-05] MEDS: InsuLIN REG 1unit/0.01ml Soln (100units/ml) IV ONE ×3 (02:28→16:51)
[2024-01-05] MEDS: VANCOMYCIN 1GM/200ML PREMIX 200 ML IV ONE (02:42)
[2024-01-05] MEDS: HYDROcodone-ACET 5/325MG TAB PO PRN (04:23)
--- NOTE | 2024-01-05 05:46 | DVHHP2 ---
History of Present Illness Reason for Visit: Open wound History of Present Illness 68-year-old male presents for evaluation an open wound. Patient reports having home health seen in open wound day he has on his left BKA stump. He states not seeing a wound nurse for the past two weeks. He has noticed open wound with foul-smelling drainage. Denies fever or chills. Denies any other acute complaints at the moment. Past Medical History Diabetes mellitus, chronic kidney disease, hypertension Past Surgical History Left BKA Family History Noncontributory Smoke: No ALCOHOL: occassional Drugs: None Lives: with Family Review of Systems Review of Systems Review of systems are currently negative otherwise addressed in HPI. Allergies: Coded Allergies: Penicillins (Verified Allergy, Unknown, 09/19/23) Hydromorphone (Verified Adverse Reaction, Unknown, vomiting, 01/05/24) Sodium Zirconium Cyclosilicate (Verified Adverse Reaction, Unknown, vomiting, 01/05/24) Medications Current Medications Medications Dose Ordered Sig/Shana Route Start Time Stop Time Status Last Admin Dose Admin Levofloxacin 50 ml @ 50 mls/hr DAILY IV 01/05/24 10:00 Clindamycin Phosphate 50 ml @ 50 mls/hr Q8HR IV 01/05/24 06:00 Nifedipine 30 mg DAILY PO 01/05/24 10:00 Hydralazine HCl 10 mg Q6HP PRN IV 01/05/24 01:15 Diagnostic Test (Pha) 1 strip ACHS 01/05/24 07:00 Insulin Human Regular ACHS SC 01/05/24 07:00 Dextrose 50 ml UD PRN IV 01/05/24 01:15 Acetaminophen/ Hydrocodone Bitart 1 tab Q4HP PRN PO 01/05/24 01:15 01/05/24 04:23 1 TAB Temazepam 15 mg QHSP PRN PO 01/05/24 01:15 Ondansetron HCl 4 mg Q4HP PRN IV 01/05/24 01:15 Acetaminophen 650 mg Q6HP PRN PO 01/05/24 01:15 Exam Vital Signs Vital Signs Date Time Temp Pulse Resp B/P (MAP) Pulse Ox O2 Delivery O2 Flow Rate FiO2 01/05/24 04:19 72 15 106/70 (82) 97 01/05/24 00:27 Room Air* 0 21 01/04/24 23:20 98.1 98.1 Exam Gen: 58-year-old male in mild distress. Skin: Warm, dry, normal color and texture, no rash. HEENT: Normocephalic atraumatic, mucous membranes moist and pink. Neck: Cervical and supraclavicular nodes normal without enlargement, trachea is midline, thyroid gland is normal without masses. Pulmonary: Clear to auscultation and percussion bilaterally. Cardiac: Regular rate and rhythm. No murmur Abdomen: Soft, nontender, nondistended, bowel sounds present all 4 quadrants, no guarding, no rigidity, no organomegaly. Extremities: No cyanosis, clubbing, open wound at left BKA stump Neuro: Cranial nerves II through XII grossly intact, normal affect and speech, no focal motor deficits. Labs/Xrays ORDERING PHYSICIAN: HARDEEP PEÑALOZA MD PROCEDURE(s): [facility] [place] - CT L FEMUR WO CONTRAST REASON: Rule out osteomyellitus ORDER NUMBER(s): [id number], ACCESSION NUMBER(s): [id number] INDICATION: Rule out osteomyellitus COMPARISON: None TECHNIQUE: CT of the left femur was performed without contrast. Volume transverse images were obtained and reconstructed in multiple planes using bone and soft tissue algorithms. All CT scans at this medical facility are performed using dose modulation techniques as appropriate to a performed exam including the following: Automated exposure control was utilized; adjustment of the MA and/or KV according to patient size; and use of iterative reconstruction technique. FINDINGS: Normal mineralization and alignment. Joint spaces are preserved. There is no acute fracture. No focal osteopenia or cortical destruction to suggest osteomyelitis. There is mild osteoarthritis of the left hip with mild joint space narrowing. There is tricompartment osteoarthritis of the left knee with mild medial compartment joint space narrowing and tricompartment osteophyte formation. Prostate calcifications are seen. Urinary bladder is partially imaged and moderately distended. No acute abnormality in the visualized pelvis. The muscle bundles about the left femur are intact. Note is made of subcutaneous varicose veins. There is a trace left knee joint effusion. There is calcified atherosclerosis IMPRESSION: 1. No acute osseous abnormality. 2. Mild osteoarthritis of the left hip. 3. Mild tricompartment osteoarthritis of the left knee with mild medial compartment joint space narrowing. Labs Test 01/05/24 02:26 01/05/24 00:33 01/04/24 20:57 01/04/24 20:00 Range/Units POC Glucose 230 H 70-106 mg/dl Urine Color Light-yellow Yellow Urine Clarity Clear Clear Urine pH 5.5 5.0-9.0 Urine Specific [place] 1.014 1.001-1.035 Urine Protein 2+ H Negative Urine Ketones Negative Negative Urine Blood Negative Negative /uL Urine Nitrite Negative Negative Urine Bilirubin Negative Negative Urine Urobilinogen Normal Negative mg/dL Urine Leukocyte Esterase Negative Negative /uL Urine RBC 1 0 - 3 /hpf Urine WBC 1 0 - 3 /hpf Urine Squamous Epithelial Cells Few <5 /hpf Urine Amorphous Crystals Few None Seen /hpf Urine Bacteria None seen None Seen /hpf Urine Glucose 4+ H Normal mg/dL Troponin I High Sensitivity 5 </=54 ng/L White Blood Count 12.6 H 4.4-10.8 10^3/uL Red Blood Count 4.31 L 4.5-5.90 10^6/uL Hemoglobin 13.2 L 13.5-17.5 g/dL Hematocrit 40.1 L 41.0-53.0 % Mean Corpuscular Volume 93.0 80.0-100.0 fL Mean Corpuscular Hemoglobin 30.5 28.0-32.0 pg Mean Corpuscular Hemoglobin Concent 32.9 32.0-36.0 g/dL Red Cell Distribution Width 15.3 H 11.8-14.3 % Platelet Count 281 140-450 10^3/uL Mean Platelet Volume 9.1 6.9-10.8 fL Neutrophils (%) (Auto) 69.5 37.0-80.0 % Lymphocytes (%) (Auto) 22.1 10.0-50.0 % Monocytes (%) (Auto) 4.8 0.0-12.0 % Eosinophils (%) (Auto) 2.7 0.0-7.0 % Basophils (%) (Auto) 0.9 0.0-2.0 % Neutrophils # (Auto) 8.8 H 1.6-8.6 10 ^3/uL Lymphocytes # (Auto) 2.8 0.4-5.4 10 ^3/uL Monocytes # (Auto) 0.6 0-1.3 10 ^3/uL Eosinophils # (Auto) 0.3 0-0.8 10 ^3/uL Basophils # (Auto) 0.1 0-0.2 10 ^3/uL Nucleated Red Blood Cells 0.0 % Prothrombin Time 10.5 9.3-11.8 sec Prothrombin Time INR 0.99 0.9-1.15 Activated Partial Thromboplast Time 27.1 24.5-34.5 SEC Sodium Level 139 136-145 mmol/L Potassium Level 5.8 *H 3.5-5.1 mmol/L Chloride Level 109 H 98-107 mmol/L Carbon Dioxide Level 22 20-31 mmol/L Anion Gap 8 5-15 Blood Urea Nitrogen 54 H 9-23 mg/dL Creatinine 3.11 H 0.700-1.30 mg/dL Glomerular Filtration Rate Calc 23 >90 mL/min BUN/Creatinine Ratio 17.4 10.0-20.0 Serum Glucose 182 H 74-106 mg/dL Calcium Level 10.4 8.7-10.4 mg/dL Total Bilirubin 0.2 0.2-1.0 mg/dL Aspartate Amino Transferase (AST) 9 L 13-40 U/L Alanine Aminotransferase (ALT) 16 7-40 U/L Alkaline Phosphatase 101 46-116 U/L B-Type Natriuretic Peptide 35.18 0-100 pg/mL Total Protein 8.5 H 5.7-8.2 g/dL Albumin 4.7 3.2-4.8 g/dL Assessment/Plan Assessment/Plan Assessment Left stump open wound Acute on chronic renal failure Hypokalemia Diabetes mellitus Hypertension Morbid obesity Plan Admit the patient to [facility] to the hospitalist Nephrology consultation Rocephin/clindamycin Wound consult Resume home medications Pain management Continue treatment per orders. Plan discussed with: Patient My Orders Orders - KURTIS YAN AGACNP Procedure Category Date Status Time Levofloxacin 250mg PHA 01/05/24 In Process (Levaquin 250mg) 10:00 Clindamycin 600mg Iv PHA 01/05/24 In Process (Cleocin Iv) 06:00 *Dr. [facility] CONS 01/05/24 Transmitted -[place] 01:02 * Wound Consult CONS 01/05/24 Transmitted Nifedipine Er PHA 01/05/24 In Process (Procardia Xl 10:00 Hydralazine Injection PHA 01/05/24 In Process (Apresoline Inject 01:15 Basic Metabolic Panel LAB 01/06/24 Verified 04:00 Glucose Blood PHA 01/05/24 In Process (Accu-Chek Comfort 07:00 Insulin R (Human) PHA 01/05/24 In Process (Insulin R) 07:00 Dextrose 50% Syringe PHA 01/05/24 In Process 01:15 Admit ADMIT 01/05/24 Transmitted 01:02 Renal DIET 01/05/24 Transmitted Standard(2gna,3gk,Lopho) Breakfast Hydrocodone-Acet PHA 01/05/24 In Process 5/325mg Tab ([place] 01:15 Temazepam (Restoril) PHA 01/05/24 In Process 01:15 Ondansetron Hcl PHA 01/05/24 In Process (Zofran) 01:15 Complete Blood Count LAB 01/06/24 Verified 04:00 Condition: Stable ZONIA 01/05/24 In Process 01:02 Acetaminophen Tablet PHA 01/05/24 In Process (Tylenol Tablet) 01:15 Bedrest With Bathroom ZONIA 01/05/24 In Process Privileg 01:02 Date of Service: Jan 05, 2024 Billing Provider: KURTIS YAN Common Visit Codes: [id number] INP/OBS CARE (HIGH) KURTIS YAN Jan 05, 2024 05:46
[2024-01-05] MEDS: CLINDAMYCIN 600MG IV 50 ML IV SCH (05:47)
[2024-01-05] MEDS: ACCU-CHEK COMFORT CURVE STRIP VI SCH (06:44)
[2024-01-05] MEDS: InsuLIN REG 1unit/0.01ml Soln (100units/ml) SC SCH (06:44)
[2024-01-05 08:00] VITALS: PULSE 71; RESP 16; O2SAT 95
[2024-01-05] MEDS: SODIUM BICARB 50mEq/50ml Vial 150 ML in D5W 5% 1,000 ML IV SCH (08:15)
[2024-01-05] MEDS: ALBUTEROL SULF 2.5 MG/0.5ML(0.5%) NEB SOLN NEB ONE (10:16)
[2024-01-05 12:00] VITALS: RESP 16; O2SAT 95
[2024-01-05] MEDS: BUMETANIDE 2.5mg/10ml (0.25 mg/ml) INJ IV SCH (12:08)
[2024-01-05 12:31] LABS: Chloride 108 mmol/L (98-107); Potassium 4.6 mmol/L (3.5-5.1); Sodium 136 mmol/L (136-145)
[2024-01-05 12:32] LABS: Anion Gap 11 (5-15); Calcium 9.7 mg/dL (8.7-10.4); Carbon Dioxide 17 mmol/L (20-31)
[2024-01-05 12:36] LABS: Uric Acid 6.4 mg/dL (3.7-9.2)
[2024-01-05 12:37] LABS: BUN/Creatinine Ratio 15.3 (10.0-20.0); Blood Urea Nitrogen 46 mg/dL (9-23); Glucose 271 mg/dL (74-106)
[2024-01-05 12:39] LABS: Phosphorus 3.4 mg/dL (2.4-5.1)
[2024-01-05] MEDS: NIFEdipine ER 30 MG TAB PO SCH (14:22)
--- NOTE | 2024-01-05 14:39 | DVHINCON2 ---
Date of service: Jan 05, 2024 Referring Physician Hospitalist Reason for Consultation Acute kidney injury History of Present Illness 58-year-old male with past medical history of diabetes, chronic kidney disease stage 4, hypertension, peripheral vascular disease with left BKA. Patient presents to the hospital with open draining wound of the left BKA stump. Nephrology consulted due to elevated creatinine level. Patient of note had elevated potassium level Past Medical History PVD Past Surgical History BKA Allergies: Coded Allergies: Penicillins (Verified Allergy, Unknown, 09/19/23) Hydromorphone (Verified Adverse Reaction, Unknown, vomiting, 01/05/24) Sodium Zirconium Cyclosilicate (Verified Adverse Reaction, Unknown, vomiting, 01/05/24) Home Meds Active Scripts Amoxicillin & Pot Clavulanate (AUGMENTIN TABLET) 875 Mg Tb, 875 MG PO BID for 14 Days, #28 TAB Prov:JOSÉ MIGUEL SMITH RESIDENT 09/23/23 Hydrocodone-Acetaminophen (Hydrocodone Bitartrate/AC 5-325 mg) 1 Tab Tab, 1 TAB PO Q6HPRN PRN, #30 TAB Prov:MONSE OCHOA MD 09/23/23 Reported Medications Insulin Lispro (Admelog) 100 Unit/Ml Inj, 100 UNIT SC, INJ 09/19/23 Insulin Glargine (Lantus) 100 Unit/Ml Inj, 100 UNIT SC, INJ 09/19/23 Lisinopril (Lisinopril) 40 Mg Tab, 40 MG PO DAILY for 30 Days, MG 09/19/23 Methocarbamol (Robaxin) 1,000 Mg/10 Ml Inj, 750 MG PO BIDP, INJ 09/19/23 Cholecalciferol (Vitamin D3) 20 Mcg Tab, 125 MCG PO DAILY, TAB 09/19/23 Cyclobenzaprine Hcl (CYCLOBENZAPRINE HCL) 7.5 Mg Tab, 5 MG PO TIDPRN, TAB 09/19/23 Loratadine (Loratadine) 10 Mg Tab, 10 MG PO DAILY, TAB 09/19/23 Meloxicam (Meloxicam) 15 Mg Tab, 15 MG PO DAILY, TAB 09/19/23 Nifedipine (Nifedipine Er) 30 Mg Tab, 30 MG PO DAILY, TAB 09/19/23 Gabapentin (Gabapentin) 300 Mg Cap, 300 MG PO TIDP for 30 Days, MG 09/19/23 Current Medications Current Medications Medications (Trade) Dose Ordered Sig/Shana Route PRN Reason Start Time Stop Time Status Last Admin Levofloxacin 50 ml @ 50 mls/hr DAILY IV 01/05/24 10:00 Clindamycin Phosphate 50 ml @ 50 mls/hr Q8HR IV 01/05/24 06:00 01/05/24 14:16 Nifedipine (Procardia Xl (Time-Release)) 30 mg DAILY PO 01/05/24 10:00 01/05/24 14:22 Hydralazine HCl (Apresoline Injection) 10 mg Q6HP PRN IV SBP>150 01/05/24 01:15 Diagnostic Test (Pha) (Accu-Chek Comfort Curve T) 1 strip ACHS 01/05/24 07:00 01/05/24 11:57 Insulin Human Regular (InsuLIN R) ACHS SC 01/05/24 07:00 01/05/24 12:08 Dextrose 50 ml UD PRN IV Blood Sugar LESS THAN 60 01/05/24 01:15 Acetaminophen/ Hydrocodone Bitart ([place] 5/325MG Tab) 1 tab Q4HP PRN PO MODERATE PAIN (4-6 PAIN SCALE) 01/05/24 01:15 01/05/24 12:07 Temazepam (Restoril) 15 mg QHSP PRN PO FOR INSOMNIA 01/05/24 01:15 Ondansetron HCl (Zofran) 4 mg Q4HP PRN IV NAUSEA / VOMITING 01/05/24 01:15 Acetaminophen (Tylenol Tablet) 650 mg Q6HP PRN PO PAIN SCALE 1-3 OR TEMP>100.4 01/05/24 01:15 Sodium Bicarbonate 150 ml/Dextrose 1,150 ml @ 100 mls/hr [id number] IV 01/05/24 08:15 01/05/24 08:15 Bumetanide (Bumex Injection) 2.5 mg DAILY IV 01/05/24 10:00 01/05/24 12:08 Family History: Arthritis G8 MOTHER Cardiovascular disease G8 MOTHER Diabetes mellitus G8 MOTHER FH: breast cancer G8 MOTHER FH: leukemia G8 MOTHER FH: skin cancer G8 MOTHER Social History current smoker Review of Systems Open wound H&P Exam Vital Signs/I&O Vital Sign Date Time Temp Pulse Resp B/P (MAP) Pulse Ox O2 Delivery O2 Flow Rate FiO2 11/14/24 14:22 97.8 106 20 141/64 (89) 100 97.8 01/05/24 10:16 Room Air* 0 21 Intake and Output 01/04/24 01/05/24 19:00 07:00 Intake Total 1400 ml Balance 1400 ml Intake IV Total 1400 ml Physical Exam Middle-aged male Abdomen is soft Left BKA NAD Labs/Diagnostic Data Labs/Diagnostic Data Laboratory Tests Test 01/05/24 12:02 01/05/24 11:56 01/05/24 08:47 01/05/24 06:39 Range/Units Sodium Level 136 136-145 mmol/L Potassium Level 4.6 3.5-5.1 mmol/L Chloride Level 108 H 98-107 mmol/L Carbon Dioxide Level 17 L 20-31 mmol/L Anion Gap 11 5-15 Blood Urea Nitrogen 46 H 9-23 mg/dL Creatinine 3.01 H 0.700-1.30 mg/dL Glomerular Filtration Rate Calc 24 >90 mL/min BUN/Creatinine Ratio 15.3 10.0-20.0 Serum Glucose 271 H 74-106 mg/dL Uric Acid 6.4 3.7-9.2 mg/dL Calcium Level 9.7 8.7-10.4 mg/dL Phosphorus Level 3.4 2.4-5.1 mg/dL POC Glucose 281 H 77 82 70-106 mg/dl Test 01/05/24 02:26 01/05/24 00:33 01/04/24 20:57 01/04/24 20:00 Range/Units POC Glucose 230 H 70-106 mg/dl Urine Color Light-yellow Yellow Urine Clarity Clear Clear Urine pH 5.5 5.0-9.0 Urine Specific [place] 1.014 1.001-1.035 Urine Protein 2+ H Negative Urine Ketones Negative Negative Urine Blood Negative Negative /uL Urine Nitrite Negative Negative Urine Bilirubin Negative Negative Urine Urobilinogen Normal Negative mg/dL Urine Leukocyte Esterase Negative Negative /uL Urine RBC 1 0 - 3 /hpf Urine WBC 1 0 - 3 /hpf Urine Squamous Epithelial Cells Few <5 /hpf Urine Amorphous Crystals Few None Seen /hpf Urine Bacteria None seen None Seen /hpf Urine Glucose 4+ H Normal mg/dL Troponin I High Sensitivity 5 5 </=54 ng/L White Blood Count 12.6 H 4.4-10.8 10^3/uL Red Blood Count 4.31 L 4.5-5.90 10^6/uL Hemoglobin 13.2 L 13.5-17.5 g/dL Hematocrit 40.1 L 41.0-53.0 % Mean Corpuscular Volume 93.0 80.0-100.0 fL Mean Corpuscular Hemoglobin 30.5 28.0-32.0 pg Mean Corpuscular Hemoglobin Concent 32.9 32.0-36.0 g/dL Red Cell Distribution Width 15.3 H 11.8-14.3 % Platelet Count 281 140-450 10^3/uL Mean Platelet Volume 9.1 6.9-10.8 fL Neutrophils (%) (Auto) 69.5 37.0-80.0 % Lymphocytes (%) (Auto) 22.1 10.0-50.0 % Monocytes (%) (Auto) 4.8 0.0-12.0 % Eosinophils (%) (Auto) 2.7 0.0-7.0 % Basophils (%) (Auto) 0.9 0.0-2.0 % Neutrophils # (Auto) 8.8 H 1.6-8.6 10 ^3/uL Lymphocytes # (Auto) 2.8 0.4-5.4 10 ^3/uL Monocytes # (Auto) 0.6 0-1.3 10 ^3/uL Eosinophils # (Auto) 0.3 0-0.8 10 ^3/uL Basophils # (Auto) 0.1 0-0.2 10 ^3/uL Nucleated Red Blood Cells 0.0 % Prothrombin Time 10.5 9.3-11.8 sec Prothrombin Time INR 0.99 0.9-1.15 Activated Partial Thromboplast Time 27.1 24.5-34.5 SEC Sodium Level 139 136-145 mmol/L Potassium Level 5.8 *H 3.5-5.1 mmol/L Chloride Level 109 H 98-107 mmol/L Carbon Dioxide Level 22 20-31 mmol/L Anion Gap 8 5-15 Blood Urea Nitrogen 54 H 9-23 mg/dL Creatinine 3.11 H 0.700-1.30 mg/dL Glomerular Filtration Rate Calc 23 >90 mL/min BUN/Creatinine Ratio 17.4 10.0-20.0 Serum Glucose 182 H 74-106 mg/dL Calcium Level 10.4 8.7-10.4 mg/dL Total Bilirubin 0.2 0.2-1.0 mg/dL Aspartate Amino Transferase (AST) 9 L 13-40 U/L Alanine Aminotransferase (ALT) 16 7-40 U/L Alkaline Phosphatase 101 46-116 U/L B-Type Natriuretic Peptide 35.18 0-100 pg/mL Total Protein 8.5 H 5.7-8.2 g/dL Albumin 4.7 3.2-4.8 g/dL Assessment Acute kidney injury hemodynamically mediated Chronic kidney disease stage 4 Sepsis secondary to wound infection Diabetes Hyperkalemia Metabolic acidosis Peripheral vascular disease with BKA and draining wound from left BKA stump IV fluid hydration sodium bicarbonate drip Renal diet Potassium restriction Potassium binder IV antibiotics as per primary medical team No emergent indication for hemodialysis at this time as patient is responding to medical therapy Monitor urinary output Avoid contrast studies unless emergent Plan discussed with: Patient LORNA SARGENT MD Jan 05, 2024 14:39
--- NOTE | 2024-01-05 15:24 | DVHPN2 ---
Subjective Patient continues to report having pain and drainage to his left BKA stump Reviewed: Care Plan, H&P, Labs, Medications Changes from previous H/P or p: No Changes General: Per HPI Objective Vitals Vital Signs Date Time Temp Pulse Resp B/P (MAP) Pulse Ox O2 Delivery O2 Flow Rate FiO2 01/05/24 14:22 97.8 106 20 141/64 (89) 100 97.8 01/05/24 12:00 Room Air* 0 21 Intake/Output Intake and Output 01/05/24 07:00 Intake Total 1400 ml Balance 1400 ml Intake IV Total 1400 ml General Appearance: Alert, Oriented X3, Cooperative, No acute distress HEENT: Atraumatic, PERRLA Lungs: Clear to auscultation, Normal air movement Cardiovascular: Normal S1, Normal S2 Abdomen: Normal bowel sounds, Soft, No tenderness Musculoskeletal: Normal sensory function, Normal motor function Neuro: Normal gait, Normal speech Psych/Mental Status: Mental status NL, Mood NL Medications Current Medications Medications Dose Ordered Sig/Shana Route Start Time Stop Time Status Last Admin Dose Admin Levofloxacin 50 ml @ 50 mls/hr DAILY IV 01/05/24 10:00 Clindamycin Phosphate 50 ml @ 50 mls/hr Q8HR IV 01/05/24 06:00 01/05/24 14:16 50 MLS/HR Nifedipine 30 mg DAILY PO 01/05/24 10:00 01/05/24 14:22 30 MG Hydralazine HCl 10 mg Q6HP PRN IV 01/05/24 01:15 Diagnostic Test (Pha) 1 strip ACHS 01/05/24 07:00 01/05/24 11:57 1 STRIP Insulin Human Regular ACHS SC 01/05/24 07:00 01/05/24 12:08 6 UNITS Dextrose 50 ml UD PRN IV 01/05/24 01:15 Acetaminophen/ Hydrocodone Bitart 1 tab Q4HP PRN PO 01/05/24 01:15 01/05/24 12:07 1 TAB Temazepam 15 mg QHSP PRN PO 01/05/24 01:15 Ondansetron HCl 4 mg Q4HP PRN IV 01/05/24 01:15 Acetaminophen 650 mg Q6HP PRN PO 01/05/24 01:15 Sodium Bicarbonate 150 ml/Dextrose 1,150 ml @ 100 mls/hr [id number] IV 01/05/24 08:15 01/05/24 08:15 100 MLS/HR Bumetanide 2.5 mg DAILY IV 01/05/24 10:00 01/05/24 12:08 2.5 MG Laboratory Results Laboratory Tests 01/04/24 20:00 01/05/24 12:02 Chemistry Test 01/04/24 20:00 01/05/24 12:02 Albumin 4.7 g/dL (3.2-4.8) Calcium Level 10.4 mg/dL (8.7-10.4) 9.7 mg/dL (8.7-10.4) Total Protein 8.5 g/dL (5.7-8.2) H Phosphorus Level 3.4 mg/dL (2.4-5.1) Coagulation Test 01/04/24 20:00 Prothrombin Time 10.5 sec (9.3-11.8) Prothrombin Time INR 0.99 (0.9-1.15) Activated Partial Thromboplast Time 27.1 SEC (24.5-34.5) Cardiac Markers Test 01/04/24 20:00 B-Type Natriuretic Peptide 35.18 pg/mL (0-100) LFT Test 01/04/24 20:00 Alanine Aminotransferase (ALT) 16 U/L (7-40) Alkaline Phosphatase 101 U/L (46-116) Aspartate Amino Transferase (AST) 9 U/L (13-40) L Total Bilirubin 0.2 mg/dL (0.2-1.0) Urinalysis Test 01/05/24 00:33 Urine Color Light-yellow (Yellow) Urine Clarity Clear (Clear) Urine pH 5.5 (5.0-9.0) Urine Specific [place] 1.014 (1.001-1.035) Urine Protein 2+ (Negative) H Urine Ketones Negative (Negative) Urine Blood Negative /uL (Negative) Urine Nitrite Negative (Negative) Urine Bilirubin Negative (Negative) Urine Urobilinogen Normal mg/dL (Negative) Urine Leukocyte Esterase Negative /uL (Negative) Urine RBC 1 /hpf (0 - 3) Urine WBC 1 /hpf (0 - 3) Urine Squamous Epithelial Cells Few /hpf (<5) Urine Amorphous Crystals Few /hpf (None Seen) Urine Bacteria None seen /hpf (None Seen) Urine Glucose 4+ mg/dL (Normal) H Labs and/or images reviewed: Labs reviewed by me, Image(s) reviewed by me Assessment/Plan Assessment/Plan Impression: -infected left BKA stump -diabetes mellitus -probable PND -chronic kidney disease stage 4 -hyperkalemia -nicotine dependence with the patient patient currently smoking -obesity -primary hypertension Plan: -surgical consultation -wound care consultation -wound culture -continue antibiotic therapy with Levaquin and clindamycin -arterial study of left lower extremity -nephrology consultation -continue current antihypertensives, hold CHERRY inhibitor -regular insulin sliding scale -pain management -repeat labs in a.m. Total time spent with patient discussing and formulating plan of care: 35 minutes. This medical document was created using an electronic medical record system with [employer] dictation system. Although this document has been carefully reviewed, there may still be some phonetic and typographical errors. These areas are purely typographical due to imperfections of the software programs, and do not reflect any compromise in the patient's medical care. Plan discussed with: Patient, Other (RN) Date of Service: Jan 05, 2024 Billing Provider: ANTWON HAM NP Common Visit Codes: [id number] INP/OBS CARE(HIGH) ANTWON AHM NP Jan 05, 2024 15:24
[2024-01-05] MEDS: levoFLOXacin 250MG 50 ML IV SCH (16:29)
--- NOTE | 2024-01-05 16:33 | DVH ---
Left Lower Extremity Arterial Duplex Clinical History: Nonhealing diabetic wound, amputation left lower extremity below-knee Comparison: US LT LOWER DVT on DOS: 10/25/23 Technique: Duplex Doppler evaluation including color Doppler and spectral/pulsed waveform analysis of the lower extremity arteries was performed. Findings: LEFT: Peak systolic velocities are as follows: [employer] 139 cm/s Deep femoral 152 cm/s SFA proximal 59 cm/s SFA mid-portion 453 cm/s SFA distal 53 cm/s Popliteal 31 cm/s Below-knee amputation The waveforms are waveforms. IMPRESSION: 1. Increased arterial velocities mid SFA on the left. Estimated 75-99% arterial stenosis. 2. Patient is status post left lower extremity below-knee amputation. REFERENCE VALUES, [facility] ([facility]) vascular Imaging Lab Criteria: Peak systolic velocity ranges (in cm/sec) are as follows: <150 cm/s - <20 % stenosis 150-200 cm/s - 20-49% stenosis 200-300 cm/s - 50-75% stenosis >300 cm/s -> 75% stenosis
[2024-01-05 17:41] VITALS: RESP 18; O2SAT 98
[2024-01-05 20:00] VITALS: PULSE 83; RESP 18; O2SAT 96
[2024-01-05 21:00] VITALS: BP 125/76; PULSE 84; RESP 18; TEMP 97.3; O2SAT 96
[2024-01-06] VITALS (9 sets, daily range): BP systolic 127–180; BP diastolic 73–85; PULSE 72–86; RESP 15–20; TEMP 97.5–98.1; O2SAT 93–99
[2024-01-06 05:13] LABS: Basophils # (auto) 0.1 10 ^3/uL (0-0.2); Basophils % (auto) 0.9 % (0.0-2.0); Eosinophils # (auto) 0.3 10 ^3/uL (0-0.8); Eosinophils % (auto) 2.9 % (0.0-7.0); Hemoglobin 11.4 g/dL (13.5-17.5); Lymphocytes % (auto) 22.8 % (10.0-50.0); Mean Corpuscular Hemoglobin 30.9 pg (28.0-32.0); Mean Corpuscular Hgb Conc. 33.6 g/dL (32.0-36.0); Mean Corpuscular Volume 91.9 fL (80.0-100.0); Monocytes # (auto) 0.4 10 ^3/uL (0-1.3); Monocytes % (auto) 5.1 % (0.0-12.0); Neutrophils % (auto) 68.3 % (37.0-80.0); Platelet Count (auto) 218 10^3/uL (140-450); Red Cell Distribution Width 14.7 % (11.8-14.3); White Blood Cell 8.8 10^3/uL (4.4-10.8)
[2024-01-06 05:18] LABS: Chloride 110 mmol/L (98-107); Potassium 5.3 mmol/L (3.5-5.1); Sodium 139 mmol/L (136-145)
[2024-01-06 05:19] LABS: Anion Gap 11 (5-15); Calcium 9.5 mg/dL (8.7-10.4); Carbon Dioxide 18 mmol/L (20-31)
[2024-01-06 05:24] LABS: BUN/Creatinine Ratio 17.2 (10.0-20.0); Blood Urea Nitrogen 53 mg/dL (9-23); Glucose 192 mg/dL (74-106)
--- NOTE | 2024-01-06 11:28 | DVHINCON2 ---
Date of service: Jan 06, 2024 History of Present Illness 58-year-old male with a history of left BKA stump abscess that was drained in August who has been doing well until recently when he reported that after the VAC dressing was removed the wound cares failed to follow up afterwards and noticed some drainage and worsening wound at the stump. Past Medical History Hypertension. Diabetes. Chronic kidney disease. Past Surgical History Left BKA. 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 Right lower leg ORIF. Family History: Arthritis G8 MOTHER Cardiovascular disease G8 MOTHER Diabetes mellitus G8 MOTHER FH: breast cancer G8 MOTHER FH: leukemia G8 MOTHER FH: skin cancer G8 MOTHER Family History Noncontributory Social History Heavy smoker. Occasional alcohol. No IV drug use. Allergies: Coded Allergies: Penicillins (Verified Allergy, Unknown, 09/19/23) Hydromorphone (Verified Adverse Reaction, Unknown, vomiting, 01/05/24) Sodium Zirconium Cyclosilicate (Verified Adverse Reaction, Unknown, vomiting, 01/05/24) Home Meds Active Scripts Amoxicillin & Pot Clavulanate (AUGMENTIN TABLET) 875 Mg Tb, 875 MG PO BID for 14 Days, #28 TAB Prov:JOSÉ MIGUEL SMITH RESIDENT 09/23/23 Hydrocodone-Acetaminophen (Hydrocodone Bitartrate/AC 5-325 mg) 1 Tab Tab, 1 TAB PO Q6HPRN PRN, #30 TAB Prov:MONSE OCHOA MD 09/23/23 Reported Medications Insulin Lispro (Admelog) 100 Unit/Ml Inj, 100 UNIT SC, INJ 09/19/23 Insulin Glargine (Lantus) 100 Unit/Ml Inj, 100 UNIT SC, INJ 09/19/23 Lisinopril (Lisinopril) 40 Mg Tab, 40 MG PO DAILY for 30 Days, MG 09/19/23 Methocarbamol (Robaxin) 1,000 Mg/10 Ml Inj, 750 MG PO BIDP, INJ 09/19/23 Cholecalciferol (Vitamin D3) 20 Mcg Tab, 125 MCG PO DAILY, TAB 09/19/23 Cyclobenzaprine Hcl (CYCLOBENZAPRINE HCL) 7.5 Mg Tab, 5 MG PO TIDPRN, TAB 09/19/23 Loratadine (Loratadine) 10 Mg Tab, 10 MG PO DAILY, TAB 09/19/23 Meloxicam (Meloxicam) 15 Mg Tab, 15 MG PO DAILY, TAB 09/19/23 Nifedipine (Nifedipine Er) 30 Mg Tab, 30 MG PO DAILY, TAB 09/19/23 Gabapentin (Gabapentin) 300 Mg Cap, 300 MG PO TIDP for 30 Days, MG 09/19/23 Vital Signs Vital Signs Date Time Temp Pulse Resp B/P (MAP) Pulse Ox O2 Delivery O2 Flow Rate FiO2 01/06/24 09:42 149/81 01/06/24 09:22 97.7 81 18 97 97.7 01/06/24 08:00 Room Air* 0 21 Physical Exam GEN: Age-appropriate male in no acute distress. Alert. HEENT: Normocephalic atraumatic. Moist mucous membranes. Anicteric sclerae. CV: RRR Respiratory: CTAB ABD: Soft. Nontender nondistended. Left BKA stump: There is proximally 5 cm open wound at the tip with exposed bony stump protruding through beyond the surrounding skin edge that had contracted with necrotic tissue with some minimal drainage. Mild surrounding erythema. CT of the left BKA stump: No obvious signs of osteomyelitis. Labs/Diagnostic Data Labs Test 01/06/24 06:29 01/06/24 04:46 01/05/24 12:02 01/05/24 00:33 Range/Units POC Glucose 218 H 70-106 mg/dl White Blood Count 8.8 # 4.4-10.8 10^3/uL Red Blood Count 3.70 L 4.5-5.90 10^6/uL Hemoglobin 11.4 L 13.5-17.5 g/dL Hematocrit 34.0 #L 41.0-53.0 % Mean Corpuscular Volume 91.9 80.0-100.0 fL Mean Corpuscular Hemoglobin 30.9 28.0-32.0 pg Mean Corpuscular Hemoglobin Concent 33.6 32.0-36.0 g/dL Red Cell Distribution Width 14.7 H 11.8-14.3 % Platelet Count 218 140-450 10^3/uL Mean Platelet Volume 8.9 6.9-10.8 fL Neutrophils (%) (Auto) 68.3 37.0-80.0 % Lymphocytes (%) (Auto) 22.8 10.0-50.0 % Monocytes (%) (Auto) 5.1 0.0-12.0 % Eosinophils (%) (Auto) 2.9 0.0-7.0 % Basophils (%) (Auto) 0.9 0.0-2.0 % Neutrophils # (Auto) 6.0 1.6-8.6 10 ^3/uL Lymphocytes # (Auto) 2.0 0.4-5.4 10 ^3/uL Monocytes # (Auto) 0.4 0-1.3 10 ^3/uL Eosinophils # (Auto) 0.3 0-0.8 10 ^3/uL Basophils # (Auto) 0.1 0-0.2 10 ^3/uL Nucleated Red Blood Cells 0.0 % Sodium Level 139 136-145 mmol/L Potassium Level 5.3 H 3.5-5.1 mmol/L Chloride Level 110 H 98-107 mmol/L Carbon Dioxide Level 18 L 20-31 mmol/L Anion Gap 11 5-15 Blood Urea Nitrogen 53 H 9-23 mg/dL Creatinine 3.08 H 0.700-1.30 mg/dL Glomerular Filtration Rate Calc 23 >90 mL/min BUN/Creatinine Ratio 17.2 10.0-20.0 Serum Glucose 192 H 74-106 mg/dL Calcium Level 9.5 8.7-10.4 mg/dL Hemoglobin A1c 7.6 H <5.7 % A1C Uric Acid 6.4 3.7-9.2 mg/dL Phosphorus Level 3.4 2.4-5.1 mg/dL Urine Color Light-yellow Yellow Urine Clarity Clear Clear Urine pH 5.5 5.0-9.0 Urine Specific [place] 1.014 1.001-1.035 Urine Protein 2+ H Negative Urine Ketones Negative Negative Urine Blood Negative Negative /uL Urine Nitrite Negative Negative Urine Bilirubin Negative Negative Urine Urobilinogen Normal Negative mg/dL Urine Leukocyte Esterase Negative Negative /uL Urine RBC 1 0 - 3 /hpf Urine WBC 1 0 - 3 /hpf Urine Squamous Epithelial Cells Few <5 /hpf Urine Amorphous Crystals Few None Seen /hpf Urine Bacteria None seen None Seen /hpf Urine Glucose 4+ H Normal mg/dL Test 01/04/24 20:57 01/04/24 20:00 Range/Units Troponin I High Sensitivity 5 </=54 ng/L Prothrombin Time 10.5 9.3-11.8 sec Prothrombin Time INR 0.99 0.9-1.15 Activated Partial Thromboplast Time 27.1 24.5-34.5 SEC Total Bilirubin 0.2 0.2-1.0 mg/dL Aspartate Amino Transferase (AST) 9 L 13-40 U/L Alanine Aminotransferase (ALT) 16 7-40 U/L Alkaline Phosphatase 101 46-116 U/L B-Type Natriuretic Peptide 35.18 0-100 pg/mL Total Protein 8.5 H 5.7-8.2 g/dL Albumin 4.7 3.2-4.8 g/dL Microbiology Date/Time Source Procedure Growth Status 01/05/24 00:56 Leg Gram Stain Pending Resulted 01/05/24 00:56 Leg Wound Culture - Preliminary Resulted Assessment 1. Infected left BKA stump with exposed bony stump preventing wound healing. Plan/Recommendation 1. Left BKA stump revision Informed consent: The surgery and its risks including but not limited to infection, open surgical site requiring VAC dressing with local wound care until it closes, possible bleeding requiring blood transfusion with the risk of hepatitis or HIV infection, possible perioperative CO or stroke were explained to the patient. All questions were answered to his satisfaction. He expressed verbal understanding and wished to proceed with the surgery. Plan discussed with: Patient FARIDA NG MD Jan 06, 2024 11:28
--- NOTE | 2024-01-06 14:06 | DVHPN2 ---
Subjective Patient continues to report having pain and drainage to his left BKA stump Reviewed: Care Plan, H&P, Labs, Medications Changes from previous H/P or p: No Changes General: Per HPI Objective Vitals Vital Signs Date Time Temp Pulse Resp B/P (MAP) Pulse Ox O2 Delivery O2 Flow Rate FiO2 01/06/24 13:54 97.7 78 15 146/83 (104) 99 97.7 01/06/24 08:00 Room Air* 0 21 Intake/Output Intake and Output 01/06/24 07:00 Intake Total 250 ml Output Total 300 ml Balance -50 ml Intake Oral 150 ml IV Total 100 ml Output Urine Total 300 ml General Appearance: Alert, Oriented X3, Cooperative, No acute distress HEENT: Atraumatic, PERRLA Lungs: Clear to auscultation, Normal air movement Cardiovascular: Normal S1, Normal S2 Abdomen: Normal bowel sounds, Soft, No tenderness Musculoskeletal: Normal sensory function, Normal motor function Neuro: Normal gait, Normal speech Psych/Mental Status: Mental status NL, Mood NL Medications Current Medications Medications Dose Ordered Sig/Shana Route Start Time Stop Time Status Last Admin Dose Admin Levofloxacin 50 ml @ 50 mls/hr DAILY IV 01/05/24 10:00 01/06/24 09:42 50 MLS/HR Clindamycin Phosphate 50 ml @ 50 mls/hr Q8HR IV 01/05/24 06:00 01/06/24 06:23 50 MLS/HR Nifedipine 30 mg DAILY PO 01/05/24 10:00 01/06/24 09:42 30 MG Hydralazine HCl 10 mg Q6HP PRN IV 01/05/24 01:15 Diagnostic Test (Pha) 1 strip ACHS 01/05/24 07:00 01/06/24 11:36 1 STRIP Insulin Human Regular ACHS SC 01/05/24 07:00 01/06/24 11:38 4 UNITS Dextrose 50 ml UD PRN IV 01/05/24 01:15 Acetaminophen/ Hydrocodone Bitart 1 tab Q4HP PRN PO 01/05/24 01:15 01/06/24 13:21 1 TAB Temazepam 15 mg QHSP PRN PO 01/05/24 01:15 Ondansetron HCl 4 mg Q4HP PRN IV 01/05/24 01:15 Acetaminophen 650 mg Q6HP PRN PO 01/05/24 01:15 Sodium Bicarbonate 150 ml/Dextrose 1,150 ml @ 100 mls/hr [id number] IV 01/05/24 08:15 01/05/24 08:15 100 MLS/HR Bumetanide 2.5 mg DAILY IV 01/05/24 10:00 01/06/24 09:42 2.5 MG Laboratory Results Laboratory Tests 01/06/24 04:46 Chemistry Test 01/06/24 04:46 Calcium Level 9.5 mg/dL (8.7-10.4) Urinalysis Test 01/05/24 00:33 Urine Color Light-yellow (Yellow) Urine Clarity Clear (Clear) Urine pH 5.5 (5.0-9.0) Urine Specific [place] 1.014 (1.001-1.035) Urine Protein 2+ (Negative) H Urine Ketones Negative (Negative) Urine Blood Negative /uL (Negative) Urine Nitrite Negative (Negative) Urine Bilirubin Negative (Negative) Urine Urobilinogen Normal mg/dL (Negative) Urine Leukocyte Esterase Negative /uL (Negative) Urine RBC 1 /hpf (0 - 3) Urine WBC 1 /hpf (0 - 3) Urine Squamous Epithelial Cells Few /hpf (<5) Urine Amorphous Crystals Few /hpf (None Seen) Urine Bacteria None seen /hpf (None Seen) Urine Glucose 4+ mg/dL (Normal) H Microbiology Microbiology Date/Time Source Procedure Growth Status 01/05/24 00:56 Leg Gram Stain - Final Resulted 01/05/24 00:56 Leg Wound Culture - Preliminary Resulted Labs and/or images reviewed: Labs reviewed by me, Image(s) reviewed by me Assessment/Plan Assessment/Plan Impression: -infected left BKA stump -diabetes mellitus -probable PND -chronic kidney disease stage 4 -hyperkalemia -nicotine dependence with the patient patient currently smoking -obesity -primary hypertension Plan: Events: Patient continues to be hyperkalemic. Patient continues to go outside to smoke. -surgical consultation : Recommendations reviewed -wound care consultation -wound culture: Pending -continue antibiotic therapy with Levaquin and clindamycin -arterial study of left lower extremity : Noted PAD to lower extremity. Given renal function, we will plan to anticoagulate after surgery. -nephrology consultation : Recommendations reviewed -continue sodium bicarbonate infusion -regular insulin sliding scale -pain management -repeat labs in a.m. Total time spent with patient discussing and formulating plan of care: 35 minutes. This medical document was created using an electronic medical record system with [employer] dictation system. Although this document has been carefully reviewed, there may still be some phonetic and typographical errors. These areas are purely typographical due to imperfections of the software programs, and do not reflect any compromise in the patient's medical care. Plan discussed with: Patient, Other (RN) My Orders Orders - ANTWON HAM NP Procedure Category Date Status Time Lt Low Ext Art Duplex US 01/05/24 Resulted 15:19 * Surgical Consult CONS 01/05/24 Transmitted * Scale And Skip Car Operator CONS 01/05/24 Transmitted Consult * Dietary Consult CONS 01/05/24 Transmitted 18:23 Cleanse Wound With ZONIA 01/05/24 In Process Wound Clean 17:45 Basic Metabolic Panel LAB 01/07/24 Verified 04:00 Complete Blood Count LAB 01/07/24 Verified 04:00 Date of Service: Jan 06, 2024 Billing Provider: ANTWON HAM NP Common Visit Codes: [id number] INP/OBS CARE(HIGH) ANTWON HAM NP Jan 06, 2024 14:06
[2024-01-06] MEDS ORDERED: CYCL-837 PO (14:37)
[2024-01-06] MEDS ORDERED: HYDR-4795 PO (14:37)
[2024-01-06] MEDS ORDERED: DAPA1TAB4 PO (14:37)
--- NOTE | 2024-01-06 15:15 | DVHPN2 ---
Progress Note - Dictate Date Seen: Jan 06, 2024 Medical Necessity Reason Pt with a Central, PICC or Fol: No Subjective outside foods at bedside vital signs Vital Sign Date Time Temp Pulse Resp B/P (MAP) Pulse Ox O2 Delivery O2 Flow Rate FiO2 01/06/24 13:54 97.7 78 15 146/83 (104) 99 97.7 01/06/24 08:00 Room Air* 0 21 Total Intake and Output 01/05/24 01/05/24 01/06/24 15:00 23:00 07:00 Intake Total 100 ml 150 ml Output Total 300 ml Balance 100 ml -150 ml medications Current Medications Medications Dose Ordered Sig/Shana Route Start Time Stop Time Status Last Admin Dose Admin Levofloxacin 50 ml @ 50 mls/hr DAILY IV 01/05/24 10:00 01/06/24 09:42 50 MLS/HR Clindamycin Phosphate 50 ml @ 50 mls/hr Q8HR IV 01/05/24 06:00 01/06/24 14:12 50 MLS/HR Nifedipine 30 mg DAILY PO 01/05/24 10:00 01/06/24 09:42 30 MG Hydralazine HCl 10 mg Q6HP PRN IV 01/05/24 01:15 Diagnostic Test (Pha) 1 strip ACHS 01/05/24 07:00 01/06/24 11:36 1 STRIP Insulin Human Regular ACHS SC 01/05/24 07:00 01/06/24 11:38 4 UNITS Dextrose 50 ml UD PRN IV 01/05/24 01:15 Acetaminophen/ Hydrocodone Bitart 1 tab Q4HP PRN PO 01/05/24 01:15 01/06/24 13:21 1 TAB Temazepam 15 mg QHSP PRN PO 01/05/24 01:15 Ondansetron HCl 4 mg Q4HP PRN IV 01/05/24 01:15 Acetaminophen 650 mg Q6HP PRN PO 01/05/24 01:15 Sodium Bicarbonate 150 ml/Dextrose 1,150 ml @ 100 mls/hr [id number] IV 01/05/24 08:15 01/05/24 08:15 100 MLS/HR Bumetanide 2.5 mg DAILY IV 01/05/24 10:00 01/06/24 09:42 2.5 MG objective Middle-aged male Abdomen is soft Left BKA NAD laboratory and microbiology Laboratory Tests 01/06/24 04:46 Test 01/06/24 04:46 Range/Units Serum Glucose 192 H 74-106 mg/dL Assessment/Plan Acute kidney injury hemodynamically mediated Chronic kidney disease stage 4 Sepsis secondary to wound infection Diabetes Hyperkalemia Metabolic acidosis Peripheral vascular disease with BKA and draining wound from left BKA stump IV fluid hydration sodium bicarbonate drip Renal diet Potassium restriction Potassium binder Surgery plans stump revision IV ABX IV antibiotics as per primary medical team No emergent indication for hemodialysis at this time as patient is responding to medical therapy Monitor urinary output Avoid contrast studies unless emergent Dietary Evaluation Review Comments: 1) Consider a Renal Specific K2,low phos,2gmNa,80g Pro/CCHO 60g diet 2) Continue current plan of care Expected Outcomes/Goals: 1) F/U in 3-5 days Plan discussed with: Patient LORNA SARGENT MD Jan 06, 2024 15:15
[2024-01-06] MEDS: SODIUM ZIRCONIUM CYCL 10 GM PAK PO SCH (17:15)
[2024-01-06] MEDS: SODIUM BICARB 8.4% 50Meq/50ml SYR Vial IV ONE (17:27)
[2024-01-07] VITALS (7 sets, daily range): BP systolic 128–159; BP diastolic 64–79; PULSE 40–106; RESP 14–20; TEMP 97.1–98.2; O2SAT 93–100
[2024-01-07] MEDS ORDERED: fentaNYL CITRATE 100 MCG/2 ML VL ONE (09:11)
[2024-01-07] MEDS ORDERED: MIDAZOLAM HCL 2MG/2ML 2ml VIAL (1mg/ml) ONE (09:11)
[2024-01-07] MEDS ORDERED: ONDANSETRON HCL 4 MG/2 ML VIAL ONE (09:12)
[2024-01-07] MEDS ORDERED: ROCURONIUM 10MG/ML 10ML VIAL IV ONE (09:12)
[2024-01-07] MEDS ORDERED: PROPOFOL 10 MG/ML 20 ML IV ONE (09:12)
[2024-01-07] MEDS ORDERED: LIDOCAINE 1% INJ PF 5ML AMP ONE (09:13)
[2024-01-07] MEDS: SUCCINYLCHOLINE CHLORIDE 20 MG/ML 10ML VIAL IV ONE (09:41)
[2024-01-07] MEDS ORDERED: MORPHINE SULF PF 5 MG/10 ML VIAL ONE (09:54)
[2024-01-07] MEDS ORDERED: SUGAMMADEX 200mg/2ml Vial (100MG/ML) IV ONE (09:58)
[2024-01-07] MEDS ORDERED: MORPHINE SULFATE INJ 2 MG/ml SYRG IV PRN (10:45)
--- NOTE | 2024-01-07 10:46 | DVHOP2 ---
Operative Report - 2 Report Details Date: 01/07/24 Preop Diagnosis: Infected left BKA stump with dehiscence Postop Diagnosis: Same Surgeon: Eric Moncada MD House Superintendent: None Anesthesiologist: Eliezer Green CRNA Anesthesia: General Consent: The surgery and its risks including but not limited to infection, bleeding requiring possible blood transfusion with the risk of hepatitis or HIV infection, possible wound dehiscence, possible perioperative MT or stroke were explained to the patient. All questions were answered to his satisfaction. He expressed verbal understanding and wished to proceed with the surgery. Complications: None Estimated Blood Loss: 30 mL Fluids: 600 mL Name of Procedure Performed Left BKA revision with washout and closure Procedure Details Procedure Details: After induction of general anesthesia, patient had a tourniquet placed on the left thigh. It was left BKA stump was then exsanguinated using Esmarch and tourniquet was placed up to 250 mL mercury. The total tourniquet time was 12 minutes. Patient had exposed tip of the tibia protruding through the skin preventing this closing up. Lateral incisions were made measuring roughly 3-4 cm on each side and dissection proceeded to free up the exposed tibial stump from the surrounding tissue. There was no obvious purulent fluid located in the area. Area was swabbed for Gram stain and culture. Once enough of the tissue was freed up from the tip of the tibial stump, it was amputated taking back the bone proximally good 3 cm. The anterior edge was then angled and smoothed out. There was enough soft tissue and muscle covering the fibula and could not palpate the fibular tip as it was well covered. The area was well irrigated with copious amounts of diluted Betadine irrigation. Hemostasis was achieved using electrocautery and 2-0 Vicryl sutures. The bone wax was used to achieve hemostasis in the bone marrow. The overlying muscles were then reapproximated using interrupted 0 Vicryl sutures. Skin incision was then closed using combination of the skin kymberly and 0 nylon sutures in interrupted fashion. Surgical site was clean dry dressings were applied. Sponge, needle, instrument count at the end of the case were reported to be correct by the nursing staff. Patient tolerated procedure well and was awake, extubated and transferred to recovery in stable condition. Specimen: Gram stain and culture from the BKA stump and distal tip of the left tibia Condition Stable Disposition Still a Patient ERIC MONCADA MD Jan 07, 2024 10:46
[2024-01-07] MEDS: MORPHINE SULFATE 4 MG/ML SYR/VIAL IV PRN (10:48)
[2024-01-07] MEDS: KETOROLAC TROMETH 30 MG/ML 1ML VIAL IV ONE (10:51)
[2024-01-07] MEDS: MORPHINE SULFATE INJ 2 MG/ml SYRG ONE (10:54)
[2024-01-07] MEDS: KETOROLAC TROMETH 30 MG/ML 1ML VIAL ONE (10:55)
[2024-01-07] MEDS: fentaNYL CITRATE 100 MCG/2 ML VL ONE (10:58)
[2024-01-07] MEDS: ONDANSETRON HCL 4 MG/2 ML VIAL ONE (10:59)
[2024-01-07] MEDS: ONDANSETRON HCL 4 MG/2 ML VIAL IV ONE (11:00)
[2024-01-07] MEDS: fentaNYL CITRATE 100 MCG/2 ML VL IV PRN (11:05)
[2024-01-07] MEDS: MEPERIDINE HCL (50 MG/ML) 1 ML VIAL ONE (11:17)
[2024-01-07] MEDS: ACETAMINOPHEN IV 100 ML IV ONE (11:18)
--- NOTE | 2024-01-07 11:18 | DVHPN2 ---
Progress Note - Dictate Date Seen: Jan 07, 2024 Medical Necessity Reason Pt with a Central, PICC or Fol: No vital signs Vital Sign Date Time Temp Pulse Resp B/P (MAP) Pulse Ox O2 Delivery O2 Flow Rate FiO2 01/07/24 10:30 Room Air 0 95 01/07/24 09:00 97.4 85 14 159/78 (105) 95 97.4 Total Intake and Output 01/06/24 01/06/24 01/07/24 15:00 23:00 07:00 Intake Total 50 ml 480 ml 360 ml Balance 50 ml 480 ml 360 ml medications Current Medications Medications Dose Ordered Sig/Shana Route Start Time Stop Time Status Last Admin Dose Admin Levofloxacin 50 ml @ 50 mls/hr DAILY IV 01/05/24 10:00 01/06/24 09:42 50 MLS/HR Clindamycin Phosphate 50 ml @ 50 mls/hr Q8HR IV 01/05/24 06:00 01/07/24 06:30 50 MLS/HR Nifedipine 30 mg DAILY PO 01/05/24 10:00 01/06/24 09:42 30 MG Hydralazine HCl 10 mg Q6HP PRN IV 01/05/24 01:15 Diagnostic Test (Pha) 1 strip ACHS 01/05/24 07:00 01/07/24 06:31 1 STRIP Insulin Human Regular ACHS SC 01/05/24 07:00 01/07/24 06:33 3 UNITS Dextrose 50 ml UD PRN IV 01/05/24 01:15 Acetaminophen/ Hydrocodone Bitart 1 tab Q4HP PRN PO 01/05/24 01:15 01/06/24 22:19 1 TAB Temazepam 15 mg QHSP PRN PO 01/05/24 01:15 Ondansetron HCl 4 mg Q4HP PRN IV 01/05/24 01:15 Acetaminophen 650 mg Q6HP PRN PO 01/05/24 01:15 Sodium Bicarbonate 150 ml/Dextrose 1,150 ml @ 100 mls/hr [id number] IV 01/05/24 08:15 01/06/24 18:32 100 MLS/HR Bumetanide 2.5 mg DAILY IV 01/05/24 10:00 01/06/24 09:42 2.5 MG Zirconium Oxide 10 gm TID PO 01/06/24 17:15 01/08/24 17:14 Morphine Sulfate 2 mg Q2HPRN PRN IV 01/07/24 10:45 01/07/24 10:46 UNV 01/07/24 10:48 2 MG Fentanyl Citrate 25 mcg Q1HP PRN IV 01/07/24 10:45 01/07/24 10:46 UNV 01/07/24 11:05 25 MCG Morphine Sulfate 1 mg Q30M PRN IV 01/07/24 10:45 01/07/24 12:46 UNV objective Middle-aged male Abdomen is soft Left BKA NAD laboratory and microbiology Laboratory Tests 01/06/24 04:46 Test 01/06/24 04:46 Range/Units Serum Glucose 192 H 74-106 mg/dL Assessment/Plan Acute kidney injury hemodynamically mediated Chronic kidney disease stage 4 Sepsis secondary to wound infection Diabetes Hyperkalemia Metabolic acidosis Peripheral vascular disease with BKA and draining wound from left BKA stump IV fluid hydration sodium bicarbonate drip Renal diet Potassium restriction ; education on adherence to potassium restriction Potassium binder -> he refused Surgery plans stump revision today IV ABX IV antibiotics as per primary medical team No emergent indication for hemodialysis at this time as patient is responding to medical therapy Monitor urinary output Avoid contrast studies unless emergent Dietary Evaluation Review Comments: 1) Consider a Renal Specific K2,low phos,2gmNa,80g Pro/CCHO 60g diet 2) Continue current plan of care Expected Outcomes/Goals: 1) F/U in 3-5 days Plan discussed with: Patient LORNA SARGENT MD Jan 07, 2024 11:18
[2024-01-07] MEDS: ACETAMINOPHEN IV 1000 MG/100ML (10MG/ML) IV ONE (11:19)
[2024-01-07] MEDS: MEPERIDINE HCL (50 MG/ML) 1 ML VIAL IV ONE (11:20)
[2024-01-07 13:11] LABS: Basophils # (auto) 0 10 ^3/uL (0-0.2); Basophils % (auto) 0.4 % (0.0-2.0); Eosinophils # (auto) 0.1 10 ^3/uL (0-0.8); Eosinophils % (auto) 1.5 % (0.0-7.0); Hematocrit 34.4 % (41.0-53.0); Hemoglobin 11.7 g/dL (13.5-17.5); Lymphocytes # (auto) 1.6 10 ^3/uL (0.4-5.4); Lymphocytes % (auto) 17.7 % (10.0-50.0); Mean Corpuscular Hemoglobin 31.3 pg (28.0-32.0); Mean Corpuscular Hgb Conc. 33.9 g/dL (32.0-36.0); Mean Corpuscular Volume 92.3 fL (80.0-100.0); Monocytes # (auto) 0.5 10 ^3/uL (0-1.3); Neutrophils # (auto) 6.9 10 ^3/uL (1.6-8.6); Neutrophils % (auto) 75.4 % (37.0-80.0); Platelet Count (auto) 222 10^3/uL (140-450); Red Blood Cells 3.72 10^6/uL (4.5-5.90); White Blood Cell 9.1 10^3/uL (4.4-10.8)
[2024-01-07 13:21] LABS: Chloride 105 mmol/L (98-107); Potassium 4.9 mmol/L (3.5-5.1); Sodium 138 mmol/L (136-145)
[2024-01-07 13:22] LABS: Anion Gap 8 (5-15); Calcium 9.6 mg/dL (8.7-10.4); Carbon Dioxide 25 mmol/L (20-31)
--- NOTE | 2024-01-07 13:22 | DVHPN2 ---
Subjective Patient continues to report having pain and drainage to his left BKA stump Reviewed: Care Plan, H&P, Labs, Medications Changes from previous H/P or p: No Changes General: Per HPI Objective Vitals Vital Signs Date Time Temp Pulse Resp B/P (MAP) Pulse Ox O2 Delivery O2 Flow Rate FiO2 01/07/24 11:15 87 14 168/90 (116) 99 01/07/24 10:30 97.4 97.4 01/07/24 10:30 Room Air 0 95 Intake/Output Intake and Output 01/07/24 07:00 Intake Total 890 ml Balance 890 ml Intake Oral 840 ml IV Total 50 ml General Appearance: Alert, Oriented X3, Cooperative, No acute distress HEENT: Atraumatic, PERRLA Lungs: Clear to auscultation, Normal air movement Cardiovascular: Normal S1, Normal S2 Abdomen: Normal bowel sounds, Soft, No tenderness Musculoskeletal: Normal sensory function, Normal motor function Neuro: Normal gait, Normal speech Psych/Mental Status: Mental status NL, Mood NL Medications Current Medications Medications Dose Ordered Sig/Shana Route Start Time Stop Time Status Last Admin Dose Admin Levofloxacin 50 ml @ 50 mls/hr DAILY IV 01/05/24 10:00 01/06/24 09:42 50 MLS/HR Clindamycin Phosphate 50 ml @ 50 mls/hr Q8HR IV 01/05/24 06:00 01/07/24 06:30 50 MLS/HR Nifedipine 30 mg DAILY PO 01/05/24 10:00 01/06/24 09:42 30 MG Hydralazine HCl 10 mg Q6HP PRN IV 01/05/24 01:15 Diagnostic Test (Pha) 1 strip ACHS 01/05/24 07:00 01/07/24 12:00 1 STRIP Insulin Human Regular ACHS SC 01/05/24 07:00 01/07/24 12:00 3 UNITS Dextrose 50 ml UD PRN IV 01/05/24 01:15 Acetaminophen/ Hydrocodone Bitart 1 tab Q4HP PRN PO 01/05/24 01:15 01/06/24 22:19 1 TAB Temazepam 15 mg QHSP PRN PO 01/05/24 01:15 Ondansetron HCl 4 mg Q4HP PRN IV 01/05/24 01:15 Acetaminophen 650 mg Q6HP PRN PO 01/05/24 01:15 Sodium Bicarbonate 150 ml/Dextrose 1,150 ml @ 100 mls/hr [id number] IV 01/05/24 08:15 01/06/24 18:32 100 MLS/HR Bumetanide 2.5 mg DAILY IV 01/05/24 10:00 01/06/24 09:42 2.5 MG Zirconium Oxide 10 gm TID PO 01/06/24 17:15 01/08/24 17:14 Laboratory Results Laboratory Tests 01/07/24 12:38 Chemistry Test 01/07/24 12:38 Calcium Level Pending Urinalysis Test 01/05/24 00:33 Urine Color Light-yellow (Yellow) Urine Clarity Clear (Clear) Urine pH 5.5 (5.0-9.0) Urine Specific [place] 1.014 (1.001-1.035) Urine Protein 2+ (Negative) H Urine Ketones Negative (Negative) Urine Blood Negative /uL (Negative) Urine Nitrite Negative (Negative) Urine Bilirubin Negative (Negative) Urine Urobilinogen Normal mg/dL (Negative) Urine Leukocyte Esterase Negative /uL (Negative) Urine RBC 1 /hpf (0 - 3) Urine WBC 1 /hpf (0 - 3) Urine Squamous Epithelial Cells Few /hpf (<5) Urine Amorphous Crystals Few /hpf (None Seen) Urine Bacteria None seen /hpf (None Seen) Urine Glucose 4+ mg/dL (Normal) H Microbiology Microbiology Date/Time Source Procedure Growth Status 01/05/24 00:56 Leg Gram Stain - Final Resulted 01/05/24 00:56 Leg Wound Culture - Preliminary Resulted Labs and/or images reviewed: Labs reviewed by me, Image(s) reviewed by me Assessment/Plan Assessment/Plan Impression: -infected left BKA stump -diabetes mellitus -probable PND -chronic kidney disease stage 4 -hyperkalemia -nicotine dependence with the patient patient currently smoking -obesity -primary hypertension Plan: Events: Status post left stump I&D. Reporting nausea. -surgical consultation : Recommendations reviewed -wound care consultation -wound culture: Pending -continue antibiotic therapy with Levaquin and clindamycin -arterial study of left lower extremity : Noted PAD to lower extremity. Given renal function, we will plan to anticoagulate after surgery. -nephrology consultation : Recommendations reviewed -continue sodium bicarbonate infusion -regular insulin sliding scale -pain management -repeat labs in a.m. Total time spent with patient discussing and formulating plan of care: 35 minutes. -smoking cessation education: 15 minutes This medical document was created using an electronic medical record system with [employer] dictation system. Although this document has been carefully reviewed, there may still be some phonetic and typographical errors. These areas are purely typographical due to imperfections of the software programs, and do not reflect any compromise in the patient's medical care. Plan discussed with: Patient, Other (RN) My Orders Orders - ANTWON HAM NP Procedure Category Date Status Time Dietary NOTICE 01/06/24 Transmitted Recommendations 14:33 Renal DIET 01/07/24 Transmitted Standard(2gna,3gk,Lopho) Lunch Date of Service: Jan 07, 2024 Billing Provider: ANTWON HAM NP Common Visit Codes: [id number] INP/OBS CARE(HIGH) ANTWON HAM NP Jan 07, 2024 13:22
[2024-01-07 13:27] LABS: BUN/Creatinine Ratio 13.1 (10.0-20.0); Blood Urea Nitrogen 44 mg/dL (9-23); Glucose 192 mg/dL (74-106)
[2024-01-08 06:03] LABS: Chloride 104 mmol/L (98-107); Potassium 4.5 mmol/L (3.5-5.1); Sodium 141 mmol/L (136-145)
[2024-01-08 06:04] LABS: Anion Gap 6 (5-15); Calcium 9.5 mg/dL (8.7-10.4); Carbon Dioxide 31 mmol/L (20-31)
[2024-01-08] MEDS: ONDANSETRON HCL 4 MG/2 ML VIAL IV PRN (06:05)
[2024-01-08 06:09] LABS: BUN/Creatinine Ratio 13.1 (10.0-20.0); Blood Urea Nitrogen 51 mg/dL (9-23); Glucose 131 mg/dL (74-106)
[2024-01-08 08:00] VITALS: PULSE 65
--- NOTE | 2024-01-08 08:39 | DVHPN2 ---
Progress Note - Dictate Date Seen: Jan 08, 2024 Medical Necessity Reason Pt with a Central, PICC or Fol: No Subjective E: no major events o/n. no complaints. vital signs Vital Sign Date Time Temp Pulse Resp B/P (MAP) Pulse Ox O2 Delivery O2 Flow Rate FiO2 01/07/24 21:00 97.1 72 18 150/64 (92) 97 97.1 01/07/24 20:00 Room Air* 0 21 Total Intake and Output 01/07/24 01/07/24 01/08/24 15:00 23:00 07:00 Intake Total 0 ml 650 ml 240 ml Output Total 450 ml Balance 0 ml 650 ml -210 ml medications Current Medications Medications Dose Ordered Sig/Shana Route Start Time Stop Time Status Last Admin Dose Admin Levofloxacin 50 ml @ 50 mls/hr DAILY IV 01/05/24 10:00 01/06/24 09:42 50 MLS/HR Clindamycin Phosphate 50 ml @ 50 mls/hr Q8HR IV 01/05/24 06:00 01/08/24 06:42 50 MLS/HR Nifedipine 30 mg DAILY PO 01/05/24 10:00 01/06/24 09:42 30 MG Hydralazine HCl 10 mg Q6HP PRN IV 01/05/24 01:15 Diagnostic Test (Pha) 1 strip ACHS 01/05/24 07:00 01/08/24 06:11 1 STRIP Insulin Human Regular ACHS SC 01/05/24 07:00 01/08/24 06:16 2 UNITS Dextrose 50 ml UD PRN IV 01/05/24 01:15 Acetaminophen/ Hydrocodone Bitart 1 tab Q4HP PRN PO 01/05/24 01:15 01/08/24 05:10 1 TAB Temazepam 15 mg QHSP PRN PO 01/05/24 01:15 Ondansetron HCl 4 mg Q4HP PRN IV 01/05/24 01:15 01/08/24 06:05 4 MG Acetaminophen 650 mg Q6HP PRN PO 01/05/24 01:15 Sodium Bicarbonate 150 ml/Dextrose 1,150 ml @ 100 mls/hr [id number] IV 01/05/24 08:15 01/08/24 07:10 100 MLS/HR Bumetanide 2.5 mg DAILY IV 01/05/24 10:00 01/06/24 09:42 2.5 MG Zirconium Oxide 10 gm TID PO 01/06/24 17:15 01/08/24 17:14 objective GEN: NAD LEFT BKA: dressing clean and dry. laboratory and microbiology Laboratory Tests 01/08/24 05:01 01/07/24 12:38 Test 01/08/24 05:01 Range/Units Serum Glucose 131 H 74-106 mg/dL Assessment/Plan A: 1. s/p L BKA revision POD #1 P: 1. dc plan per hospitalist. 2. wound care: remove bandages on Tu. ok to wash stump starting on . 3. f/u in clinic on 01/16. call [phone] for appt. Dietary Evaluation Review Comments: 1) Consider a Renal Specific K2,low phos,2gmNa,80g Pro/CCHO 60g diet 2) Continue current plan of care Expected Outcomes/Goals: 1) F/U in 3-5 days Plan discussed with: FARIDA Akhtar MD Jan 08, 2024 08:39
[2024-01-08 09:00] VITALS: BP 135/76; PULSE 93; RESP 18; TEMP 98; O2SAT 95
[2024-01-08 13:00] VITALS: BP 140/72; PULSE 80; RESP 16; TEMP 98; O2SAT 99
--- NOTE | 2024-01-08 13:29 | DVHPN2 ---
Subjective Patient continues to report having pain and drainage to his left BKA stump Reviewed: Care Plan, H&P, Labs, Medications Changes from previous H/P or p: No Changes General: Per HPI Objective Vitals Vital Signs Date Time Temp Pulse Resp B/P (MAP) Pulse Ox O2 Delivery O2 Flow Rate FiO2 01/08/24 10:18 135/76 01/08/24 09:00 98.0 93 18 95 98.0 01/08/24 08:00 Room Air* 0 21 Intake/Output Intake and Output 01/08/24 07:00 Intake Total 890 ml Output Total 450 ml Balance 440 ml Intake Oral 840 ml IV Total 50 ml Output Urine Total 450 ml # Voids 5 General Appearance: Alert, Oriented X3, Cooperative, No acute distress HEENT: Atraumatic, PERRLA Lungs: Clear to auscultation, Normal air movement Cardiovascular: Normal S1, Normal S2 Abdomen: Normal bowel sounds, Soft, No tenderness Musculoskeletal: Normal sensory function, Normal motor function Neuro: Normal gait, Normal speech Skin: Dry, Intact, Wounds (See nurse notes and pictures) Psych/Mental Status: Mental status NL, Mood NL Medications Current Medications Medications Dose Ordered Sig/Shana Route Start Time Stop Time Status Last Admin Dose Admin Clindamycin Phosphate 50 ml @ 50 mls/hr Q8HR IV 01/05/24 06:00 01/08/24 06:42 50 MLS/HR Nifedipine 30 mg DAILY PO 01/05/24 10:00 01/08/24 10:18 30 MG Hydralazine HCl 10 mg Q6HP PRN IV 01/05/24 01:15 Diagnostic Test (Pha) 1 strip ACHS 01/05/24 07:00 01/08/24 11:59 1 STRIP Insulin Human Regular ACHS SC 01/05/24 07:00 01/08/24 12:07 6 UNITS Dextrose 50 ml UD PRN IV 01/05/24 01:15 Acetaminophen/ Hydrocodone Bitart 1 tab Q4HP PRN PO 01/05/24 01:15 01/08/24 10:18 1 TAB Temazepam 15 mg QHSP PRN PO 01/05/24 01:15 Ondansetron HCl 4 mg Q4HP PRN IV 01/05/24 01:15 01/08/24 06:05 4 MG Acetaminophen 650 mg Q6HP PRN PO 01/05/24 01:15 Sodium Bicarbonate 150 ml/Dextrose 1,150 ml @ 100 mls/hr [id number] IV 01/05/24 08:15 01/08/24 07:10 100 MLS/HR Bumetanide 2.5 mg DAILY IV 01/05/24 10:00 01/08/24 10:18 2.5 MG Zirconium Oxide 10 gm TID PO 01/06/24 17:15 01/08/24 17:14 Laboratory Results Laboratory Tests 01/07/24 12:38 01/08/24 05:01 Chemistry Test 01/08/24 05:01 Calcium Level 9.5 mg/dL (8.7-10.4) Urinalysis Test 01/05/24 00:33 Urine Color Light-yellow (Yellow) Urine Clarity Clear (Clear) Urine pH 5.5 (5.0-9.0) Urine Specific [place] 1.014 (1.001-1.035) Urine Protein 2+ (Negative) H Urine Ketones Negative (Negative) Urine Blood Negative /uL (Negative) Urine Nitrite Negative (Negative) Urine Bilirubin Negative (Negative) Urine Urobilinogen Normal mg/dL (Negative) Urine Leukocyte Esterase Negative /uL (Negative) Urine RBC 1 /hpf (0 - 3) Urine WBC 1 /hpf (0 - 3) Urine Squamous Epithelial Cells Few /hpf (<5) Urine Amorphous Crystals Few /hpf (None Seen) Urine Bacteria None seen /hpf (None Seen) Urine Glucose 4+ mg/dL (Normal) H Microbiology Microbiology Date/Time Source Procedure Growth Status 01/07/24 11:38 Other Left Aerobic Culture - Preliminary Resulted Labs and/or images reviewed: Labs reviewed by me, Image(s) reviewed by me Assessment/Plan Assessment/Plan Impression: -infected left BKA stump -diabetes mellitus -peripheral arterial disease -chronic kidney disease stage 4 -hyperkalemia -nicotine dependence with the patient patient currently smoking -obesity -primary hypertension Plan: Events: Postop day one left stump I&D. No new symptoms. Discharge planning for tomorrow with home health -surgical consultation : Recommendations reviewed -wound care consultation -wound culture: Pending -continue antibiotic therapy with Levaquin and clindamycin -arterial study of left lower extremity : Noted PAD to lower extremity. Given renal function, we will plan to anticoagulate after surgery. -nephrology consultation : Recommendations reviewed -continue sodium bicarbonate infusion -regular insulin sliding scale -pain management -repeat labs in a.m. Total time spent with patient discussing and formulating plan of care: 35 minutes. -smoking cessation education: 15 minutes This medical document was created using an electronic medical record system with [employer] system. Although this document has been carefully reviewed, there may still be some phonetic and typographical errors. These areas are purely typographical due to imperfections of the software programs, and do not reflect any compromise in the patient's medical care. Plan discussed with: Patient, Other (RN) My Orders Orders - ANTWON HAM NP Procedure Category Date Status Time * Vice President Fixed Income CONS 01/08/24 Transmitted Consult Basic Metabolic Panel LAB 01/09/24 Verified 04:00 Transfer Orders XFER 01/08/24 Transmitted 12:49 Date of Service: Jan 08, 2024 Billing Provider: ANTWON HAM NP Common Visit Codes: [id number] INP/OBS CARE(HIGH) ANTWON HAM NP Jan 08, 2024 13:29
--- NOTE | 2024-01-08 14:46 | DVHPN2 ---
Progress Note - Dictate Date Seen: Jan 08, 2024 Medical Necessity Reason Pt with a Central, PICC or Fol: No Subjective NAD vital signs Vital Sign Date Time Temp Pulse Resp B/P (MAP) Pulse Ox O2 Delivery O2 Flow Rate FiO2 01/08/24 13:00 98.0 80 16 140/72 (94) 99 98.0 01/08/24 08:00 Room Air* 0 21 Total Intake and Output 01/07/24 01/07/24 01/08/24 15:00 23:00 07:00 Intake Total 0 ml 650 ml 240 ml Output Total 450 ml Balance 0 ml 650 ml -210 ml medications Current Medications Medications Dose Ordered Sig/Shana Route Start Time Stop Time Status Last Admin Dose Admin Clindamycin Phosphate 50 ml @ 50 mls/hr Q8HR IV 01/05/24 06:00 01/08/24 13:55 50 MLS/HR Nifedipine 30 mg DAILY PO 01/05/24 10:00 01/08/24 10:18 30 MG Hydralazine HCl 10 mg Q6HP PRN IV 01/05/24 01:15 Diagnostic Test (Pha) 1 strip ACHS 01/05/24 07:00 01/08/24 11:59 1 STRIP Insulin Human Regular ACHS SC 01/05/24 07:00 01/08/24 12:07 6 UNITS Dextrose 50 ml UD PRN IV 01/05/24 01:15 Acetaminophen/ Hydrocodone Bitart 1 tab Q4HP PRN PO 01/05/24 01:15 01/08/24 14:08 1 TAB Temazepam 15 mg QHSP PRN PO 01/05/24 01:15 Ondansetron HCl 4 mg Q4HP PRN IV 01/05/24 01:15 01/08/24 06:05 4 MG Acetaminophen 650 mg Q6HP PRN PO 01/05/24 01:15 Sodium Bicarbonate 150 ml/Dextrose 1,150 ml @ 100 mls/hr [id number] IV 01/05/24 08:15 01/08/24 07:10 100 MLS/HR Bumetanide 2.5 mg DAILY IV 01/05/24 10:00 01/08/24 10:18 2.5 MG Zirconium Oxide 10 gm TID PO 01/06/24 17:15 01/08/24 17:14 objective Middle-aged male Abdomen is soft Left BKA NAD laboratory and microbiology Laboratory Tests 01/08/24 05:01 01/07/24 12:38 Test 01/08/24 05:01 Range/Units Serum Glucose 131 H 74-106 mg/dL Assessment/Plan Acute kidney injury hemodynamically mediated Chronic kidney disease stage 4 Sepsis secondary to wound infection Diabetes Hyperkalemia Metabolic acidosis Peripheral vascular disease with BKA and draining wound from left BKA stump DC sodium bicarbonate drip Renal diet Potassium restriction ; education on adherence to potassium restriction Potassium binder -> he refused , potassium has now normalized Surgery s/p stump revision IV ABX IV antibiotics as per primary medical team No emergent indication for hemodialysis at this time as patient is responding to medical therapy Monitor urinary output Avoid contrast studies unless emergent Dietary Evaluation Review Comments: 1) Consider a Renal Specific K2,low phos,2gmNa,80g Pro/CCHO 60g diet 2) Continue current plan of care Expected Outcomes/Goals: 1) F/U in 3-5 days Plan discussed with: Patient LORNA SARGENT MD Jan 08, 2024 14:46
[2024-01-08 17:00] VITALS: BP 135/75; PULSE 80; RESP 18; TEMP 98.4; O2SAT 96
[2024-01-08 20:00] VITALS: PULSE 80; RESP 18; O2SAT 96
[2024-01-09 06:53] LABS: Chloride 104 mmol/L (98-107); Potassium 4.2 mmol/L (3.5-5.1); Sodium 140 mmol/L (136-145)
[2024-01-09 06:54] LABS: Anion Gap 11 (5-15); Calcium 10.1 mg/dL (8.7-10.4); Carbon Dioxide 25 mmol/L (20-31)
[2024-01-09 06:59] LABS: BUN/Creatinine Ratio 11.8 (10.0-20.0); Blood Urea Nitrogen 41 mg/dL (9-23); Glucose 186 mg/dL (74-106)
[2024-01-09 09:00] VITALS: BP 162/68; PULSE 67; RESP 20; TEMP 98.2; O2SAT 98
[2024-01-09] MEDS ORDERED: SACC250C PO (11:10)
[2024-01-09] MEDS ORDERED: CLIN1CAP70 PO (11:10)
--- NOTE | 2024-01-09 11:15 | DVHDS2 ---
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 Labs/Diagnostic Data: Laboratory Results Test 01/09/24 06:22 01/08/24 22:24 01/07/24 12:38 01/05/24 12:02 Sodium Level 140 mmol/L (136-145) Potassium Level 4.2 mmol/L (3.5-5.1) Chloride Level 104 mmol/L (98-107) Carbon Dioxide Level 25 mmol/L (20-31) Anion Gap 11 (5-15) Blood Urea Nitrogen 41 mg/dL (9-23) Creatinine 3.48 mg/dL (0.700-1.30) Glomerular Filtration Rate Calc 20 mL/min (>90) BUN/Creatinine Ratio 11.8 (10.0-20.0) Serum Glucose 186 mg/dL (74-106) Calcium Level 10.1 mg/dL (8.7-10.4) POC Glucose 177 mg/dl (70-106) White Blood Count 9.1 10^3/uL (4.4-10.8) Red Blood Count 3.72 10^6/uL (4.5-5.90) Hemoglobin 11.7 g/dL (13.5-17.5) Hematocrit 34.4 % (41.0-53.0) Mean Corpuscular Volume 92.3 fL (80.0-100.0) Mean Corpuscular Hemoglobin 31.3 pg (28.0-32.0) Mean Corpuscular Hemoglobin Concent 33.9 g/dL (32.0-36.0) Red Cell Distribution Width 15.0 % (11.8-14.3) Platelet Count 222 10^3/uL (140-450) Mean Platelet Volume 9.1 fL (6.9-10.8) Neutrophils (%) (Auto) 75.4 % (37.0-80.0) Lymphocytes (%) (Auto) 17.7 % (10.0-50.0) Monocytes (%) (Auto) 5.0 % (0.0-12.0) Eosinophils (%) (Auto) 1.5 % (0.0-7.0) Basophils (%) (Auto) 0.4 % (0.0-2.0) Neutrophils # (Auto) 6.9 10 ^3/uL (1.6-8.6) Lymphocytes # (Auto) 1.6 10 ^3/uL (0.4-5.4) Monocytes # (Auto) 0.5 10 ^3/uL (0-1.3) Eosinophils # (Auto) 0.1 10 ^3/uL (0-0.8) Basophils # (Auto) 0 10 ^3/uL (0-0.2) Nucleated Red Blood Cells 0.0 % Hemoglobin A1c 7.6 % A1C (<5.7) Uric Acid 6.4 mg/dL (3.7-9.2) Phosphorus Level 3.4 mg/dL (2.4-5.1) Test 01/05/24 00:33 01/04/24 20:57 01/04/24 20:00 Urine Color Light-yellow (Yellow) Urine Clarity Clear (Clear) Urine pH 5.5 (5.0-9.0) Urine Specific Addy 1.014 (1.001-1.035) Urine Protein 2+ (Negative) Urine Ketones Negative (Negative) Urine Blood Negative /uL (Negative) Urine Nitrite Negative (Negative) Urine Bilirubin Negative (Negative) Urine Urobilinogen Normal mg/dL (Negative) Urine Leukocyte Esterase Negative /uL (Negative) Urine RBC 1 /hpf (0 - 3) Urine WBC 1 /hpf (0 - 3) Urine Squamous Epithelial Cells Few /hpf (<5) Urine Amorphous Crystals Few /hpf (None Seen) Urine Bacteria None seen /hpf (None Seen) Urine Glucose 4+ mg/dL (Normal) Troponin I High Sensitivity 5 ng/L (</=54) Prothrombin Time 10.5 sec (9.3-11.8) Prothrombin Time INR 0.99 (0.9-1.15) Activated Partial Thromboplast Time 27.1 SEC (24.5-34.5) Total Bilirubin 0.2 mg/dL (0.2-1.0) Aspartate Amino Transferase (AST) 9 U/L (13-40) Alanine Aminotransferase (ALT) 16 U/L (7-40) Alkaline Phosphatase 101 U/L (46-116) B-Type Natriuretic Peptide 35.18 pg/mL (0-100) Total Protein 8.5 g/dL (5.7-8.2) Albumin 4.7 g/dL (3.2-4.8) Other Laboratory Tests 01/09/24 06:22 01/07/24 12:38 Brief Hx & Hospital Course: History of Present Illness 68-year-old male presents for evaluation an open wound. Patient reports having home health seen in open wound day he has on his left BKA stump. He states not seeing a wound nurse for the past two weeks. He has noticed open wound with foul-smelling drainage. Denies fever or chills. Denies any other acute complaints at the moment. Course of hospitalization: After assessing the patient's wound and noting the drainage as well as foul smell, surgical consultation was placed. The patient went for I and D of the stump as well as closure on 01/07/2024. Wound culture came back for Staphylococcus aureus. The patient was already receiving adequate coverage with Levaquin and clindamycin with a day of admission. The patient will be discharged home and continue antibiotic therapy with clindamycin 300 mg p.o. 3 times a day for seven days, as well as the patient continue with Florastor 250 mg p.o. daily. He is instructed to continue all previous home medications. Long discussion was made with the patient regarding his tobacco addiction, but the patient continues to leave his hospital room to smoke outside. An arterial study was done of the surgical extremity, with noted PND. Given the patient's chronic kidney disease stage 4, any intervention will be held at this time. This was also discussed with the patient. He will follow up with the discharge Clinic in one week and/or his PCP in 1-2 weeks. Physical exam General: Alert and Oriented x3. No acute distress. Well-nourished. Obese, poor hygiene Eyes: EOMI. Anicteric. HENT: Moist mucous membranes. Lungs: Clear to auscultation bilaterally. No accessory muscle use. Cardiovascular: Regular rate and rhythm. No murmur. No JVD. Abdomen: Soft, non-tender and non-distended. No palpable masses. Extremities: No edema. Non-tender. BKA. Dressing dry and intact Skin: No rashes or lesions. Warm. Neurologic: No focal neurological deficits. CN II-XII grossly intact, but not individually tested. Psychiatric: Cooperative. Appropriate mood and affect. Total time spent with patient discussing and formulating plan of care: 35 minutes. This medical document was created using an electronic medical record system with [employer] dictation system. Although this document has been carefully reviewed, there may still be some phonetic and typographical errors. These areas are purely typographical due to imperfections of the software programs, and do not reflect any compromise in the patient's medical care. 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 Moncada in 2-3 weeks Medications: Clindamycin 300 mg p.o. 3 times a day for seven days Florastor 250 mg p.o. daily Continue all previous home medications 36 Discharge Statement: "Patient was advised to return to the ER or call 911 if any headaches, dizziness, shortness of breath, chest pain, abdominal pain, bleeding, fevers, or worsening of medical condition. Patient was counseled about treatment plan, medications, possible side effects, patientverbalized understanding. All questions were answered to the best of my ability. 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
--- NOTE | 2024-01-09 15:19 | DVHPN2 ---
Progress Note Date Seen: Jan 09, 2024 Medical Necessity Reason Pt with a Central, PICC or Fol: No Subjective Patient reports: No new complaints Review of Systems: HEENT:Normal, CVS:Normal, RESPIRATORY:Normal, GI:Normal, :Normal, MSK:Abnormal, NEURO:Normal Objective vital signs Vital Sign Date Time Temp Pulse Resp B/P (MAP) Pulse Ox O2 Delivery O2 Flow Rate FiO2 01/09/24 09:41 162/68 01/09/24 09:00 98.2 67 20 98 98.2 01/09/24 08:00 Room Air* 0 21 Total Intake and Output 01/08/24 01/08/24 01/09/24 15:00 23:00 07:00 Intake Total 675 ml 930 ml 800 ml Output Total 500 ml Balance 675 ml 930 ml 300 ml medications Current Medications Medications Dose Ordered Sig/Shana Route Start Time Stop Time Status Last Admin Dose Admin Clindamycin Phosphate 50 ml @ 50 mls/hr Q8HR IV 01/05/24 06:00 01/09/24 06:03 50 MLS/HR Nifedipine 30 mg DAILY PO 01/05/24 10:00 01/09/24 09:41 30 MG Hydralazine HCl 10 mg Q6HP PRN IV 01/05/24 01:15 Diagnostic Test (Pha) 1 strip ACHS 01/05/24 07:00 01/09/24 06:11 1 STRIP Insulin Human Regular ACHS SC 01/05/24 07:00 01/09/24 06:11 3 UNITS Dextrose 50 ml UD PRN IV 01/05/24 01:15 Acetaminophen/ Hydrocodone Bitart 1 tab Q4HP PRN PO 01/05/24 01:15 01/09/24 07:46 1 TAB Temazepam 15 mg QHSP PRN PO 01/05/24 01:15 Ondansetron HCl 4 mg Q4HP PRN IV 01/05/24 01:15 01/08/24 06:05 4 MG Acetaminophen 650 mg Q6HP PRN PO 01/05/24 01:15 Bumetanide 2.5 mg DAILY IV 01/05/24 10:00 01/09/24 09:41 2.5 MG Examination: GENERAL:Normal, HEENT:Normal, NECK:Normal, LUNGS:Normal, CVS:Normal, ABDOMEN:Normal, MSK:Abnormal, SKIN:Abnormal, NEURO:Normal, :Normal laboratory and microbiology Laboratory Tests 01/09/24 06:22 01/07/24 12:38 Test 01/09/24 06:22 Range/Units Serum Glucose 186 H 74-106 mg/dL Microbiology Date/Time Source Procedure Growth Status 01/07/24 11:38 Other Anaerobic Culture - Preliminary Resulted Problem List/Assessment/Plan Problem List/Assessment/Plan Acute kidney injury hemodynamically mediated Chronic kidney disease stage 4 Sepsis secondary to wound infection Diabetes Hyperkalemia Metabolic acidosis Peripheral vascular disease with BKA and draining wound from left BKA stump recs stable renal function kidney us as outpatient as he is being discharged reduce bumex dose Plan discussed with: Patient, Other Dietary Evaluation Review Comments: 1) Consider a Renal Specific K2,low phos,2gmNa,80g Pro/CCHO 60g diet 2) Continue current plan of care Expected Outcomes/Goals: 1) F/U in 3-5 days DEONNA REAVES MD Jan 09, 2024 15:19
[2024-01-10] MEDS ORDERED: BUMETANIDE 2.5mg/10ml (0.25 mg/ml) INJ IV SCH (10:00)
== END 2024-01-09 19:21 | disposition home health service (06) | DRG 305 ==
LOC: ER 16:17 → OVERFLOW 01-05 01:08 → WEST WING 01-05 17:31 → TELE-WESTW 01-05 23:00 → WEST WING 01-08 12:52
PROVIDERS: ADMIT Nurse Practitioner; ATTEND Nurse Practitioner Acute Care
PROC: 0Y6J0Z3 Detachment at Left Lower Leg, Low, Open Approach (ICD-10-PCS; principal; 2024-01-07 09:14)
DX: T87.44 Infection of amputation stump, left lower extremity (principal); E87.20 Acidosis, unspecified; E11.22 Type 2 diabetes mellitus with diabetic chronic kidney disease; R71.0 Precipitous drop in hematocrit; E66.01 Morbid (severe) obesity due to excess calories; E87.5 Hyperkalemia; N18.4 Chronic kidney disease, stage 4 (severe); I12.9 Hypertensive chronic kidney disease with stage 1 through stage 4 chronic kidney disease, or unspecified chronic kidney disease; E11.51 Type 2 diabetes mellitus with diabetic peripheral angiopathy without gangrene; I73.9 Peripheral vascular disease, unspecified; F17.200 Nicotine dependence, unspecified, uncomplicated; Y83.5 Amputation of limb(s) as the cause of abnormal reaction of the patient, or of later complication, without mention of misadventure at the time of the procedure; Z88.0 Allergy status to penicillin; Z88.5 Allergy status to narcotic agent; Z68.37 Body mass index [BMI] 37.0-37.9, adult; Z88.8 Allergy status to other drugs, medicaments and biological substances; Z80.3 Family history of malignant neoplasm of breast; Z80.6 Family history of leukemia; Z80.8 Family history of malignant neoplasm of other organs or systems; Z82.49 Family history of ischemic heart disease and other diseases of the circulatory system; Z83.3 Family history of diabetes mellitus
CPT/HCPCS: 36415; 71045; 80048; 80053; 81001; 82962; 83036; 83880; 84100; 84484; 84550; 85025; 85610; 85730; 86850; 86900; 86901; 87070; 87075; 87077; 87186; 87205; 93926; 94640; G0378; J0131; J0330; J1815; J1885; J2250; J2405; J2543; J2704; J3490